=== PATIENT | female | born 1945 | race Caucasian/White ===

== ENCOUNTER 2016-11-23 07:55 | Day surgery (SDC) | payer OTHER ==
[2016-11-22 12:51] VITALS: BMI 30.6
[2016-11-23 10:30] VITALS: TEMP 98
[2016-11-23 10:50] VITALS: BP 140/70
[2016-11-23 12:49] VITALS: PULSE 60
--- NOTE | 2016-11-24 13:43 | PATH ---
Surgical Pathology Report Patient Name: BASSEM ALANIS [facility]. Rec. #: [id number] /Age/Gender: 1945 (Age: 71) / F Account: [id number] Location: [facility]-ENDOSCOPY Taken: 11/23/2016 Received: 11/23/2016 Reported: 11/24/2016 Physicians: Ryan Alvarado M.D. Specimen(s) Received A: BX ANTRAL EROSIONS B: BX ERSION IN BODY C: BX MID ESOPHAGUS Clinical History Followup gastric ulcer, dysphagia, left upper quadrant abdominal pain Erosions in antrum and body Final Diagnosis A. STOMACH, ANTRUM, EROSIONS, BIOPSY: GASTRIC ANTRAL MUCOSA WITH MODERATE CHRONIC GASTRITIS AND REACTIVE GASTROPATHY WITH FOCAL SURFACE EROSION WITH ASSOCIATED ACTIVE INFLAMMATION AND FOVEOLAR HYPERPLASIA. IMMUNOSTAIN FOR H. PYLORI IS NEGATIVE FOR ORGANISMS. B. STOMACH, BODY, EROSION, BIOPSY: GASTRIC OXYNTIC MUCOSA WITH MODERATE CHRONIC GASTRITIS WITH SURFACE EROSION. IMMUNOSTAIN FOR H. PYLORI IS NEGATIVE FOR ORGANISMS. C. ESOPHAGUS, MID, BIOPSY: SQUAMOUS EPITHELIUM WITH CHRONIC INFLAMMATION AND REFLUX TYPE CHANGES. NO EVIDENCE OF EOSINOPHILIC ESOPHAGITIS. Electronically Signed Michele Araujo M.D. Gross Description A. Received in formalin, labeled "biopsy antral erosions" are 2 serra, irregular portions of soft tissue measuring 0.1 and 0.3 cm in greatest dimension. The specimens are submitted in toto in one cassette. B. Received in formalin, labeled "biopsy erosion in body" are 2 serra, irregular portions of soft tissue averaging 0.3 cm in greatest dimension. The specimens are submitted in toto in one cassette. C. Received in formalin, labeled "biopsy midesophagus" are 2 serra, irregular portions of soft tissue measuring 0.2 and 0.3 cm in greatest dimension. The specimens are submitted in toto in one cassette. /11/23/2016 saudi11/23/2016
== END 2016-11-23 11:20 | disposition home or self-care (01) ==
LOC: JASU-ENDO 07:55
PROVIDERS: ATTEND Internal Medicine Gastroenterology
PROC: 0DB68ZX Excision of Stomach, Via Natural or Artificial Opening Endoscopic, Diagnostic (ICD-10-PCS; principal; 2016-11-23 09:30)
DX: K25.9 Gastric ulcer, unspecified as acute or chronic, without hemorrhage or perforation (principal); R13.10 Dysphagia, unspecified
CPT/HCPCS: 88305-TC; 88342-TC

== ENCOUNTER 2019-07-09 12:40 | Inpatient (IN) | payer OTHER ==
--- NOTE | 2019-07-09 13:10 | PDOC ---
History of Present Illness - General Chief Complaint: Shortness of Breath Stated Complaint: SOB Time Seen by Provider: 07/09/19 13:10 - History of Present Illness Initial Comments: 07/09/19 13:10 Ms. Guadarrama is a 74 yo female w/ pmh of HTN, HLD, osteoarthritis who presents for evaluation of worsening shortness of breath over the last 2 weeks with acute worsening over the past 3 days. Patient reports she was previously experiencing chest pain when this started however pain has been controlled with nitro. Patient presents today as she is unable to ambulate at all without becoming SOB. Patient also endorsing 1 day history of diarrhea that consisted of loose stool. 5 episodes yesterday. The patient denies headache and dizziness. Denies fever, chills, nausea, vomit, and constipation. Denies dysuria, frequency, urgency and hematuria. Past History - Past Medical History Allergies/Adverse Reactions: Allergies Allergy/AdvReac Type Severity Reaction Status Date / Time No Known Allergies Allergy Verified 07/09/19 12:58 Home Medications: Ambulatory Orders Acetaminophen [Tylenol Arthritis] 650 mg PO PRN 11/22/16 Alendronate Na [Fosamax (Weekly)] 70 mg PO Q7D 11/22/16 Atorvastatin Ca [Lipitor] 40 mg PO HS 11/22/16 Hydrochlorothiazide 25 mg PO DAILY 11/22/16 Valsartan 160 mg PO BID 11/22/16 Pantoprazole Sodium [Protonix] 40 mg PO DAILY #0 tablet. 11/23/16 Cardiac Disorders: Yes (abnormal ekg. on nitro sl) COPD: No GI Disorders: Yes (reflux) HTN: Yes Hypercholesterolemia: Yes - Surgical History Cardiac Surgery: Yes (cardiac cath 2016) Cholecystectomy: Yes - Psycho Social/Smoking Cessation Hx Smoking History: Unknown if ever smoked Hx Alcohol Use: No Drug/Substance Use Hx: No Substance Use Type: None Review of Systems - Review of Systems Comments:: 07/09/19 13:24 GENERAL/CONSTITUTIONAL: No fever or chills. No weakness. HEAD, EYES, EARS, NOSE AND THROAT: No change in vision. No ear pain or discharge. No sore throat. CARDIOVASCULAR: +Chest pain / SOB as described. RESPIRATORY: No cough, wheezing, or hemoptysis. GASTROINTESTINAL: +Diarrhea as described. No nausea, vomiting, or constipation. GENITOURINARY: No dysuria, frequency, or change in urination. MUSCULOSKELETAL: No joint or muscle swelling or pain. No neck or back pain. SKIN: No rash NEUROLOGIC: No headache, vertigo, loss of consciousness, or change in strength/ sensation. ENDOCRINE: No increased thirst. No abnormal weight change HEMATOLOGIC/LYMPHATIC: No anemia, easy bleeding, or history of blood clots. ALLERGIC/IMMUNOLOGIC: No hives or skin allergy. *Physical Exam - Vital Signs Last Vital Signs Temp Pulse Resp BP Pulse Ox 97.9 F 82 16 111/62 96 07/09/19 12:40 07/09/19 12:40 07/09/19 12:40 07/09/19 12:40 07/09/19 12:40 - Physical Exam 07/09/19 13:25 GENERAL: Awake, alert, and fully oriented, in no acute distress HEAD: No signs of trauma, normocephalic, atraumatic EYES: PERRLA, EOMI, sclera anicteric, conjunctiva clear ENT: Auricles normal inspection, hearing grossly normal, nares patent, oropharynx clear without exudates. Moist mucosa NECK: Normal ROM, supple, no lymphadenopathy, JVD, or masses LUNGS: No distress, speaks full sentences, clear to auscultation bilaterally HEART: Regular rate and rhythm, normal S1 and S2, no murmurs, rubs or gallops, peripheral pulses normal and equal bilaterally. ABDOMEN: +Diffuse abdominal TTP. Normoactive bowel sounds. No guarding, no rebound. No masses EXTREMITIES: Normal inspection, Normal range of motion, no edema. No clubbing or cyanosis. NEUROLOGICAL: Cranial nerves II through XII grossly intact. Normal speech, normal gait, no focal sensorimotor deficits SKIN: Warm, Dry, normal turgor, no rashes or lesions noted. ED Treatment Course - LABORATORY CBC & Chemistry Diagram: 07/09/19 13:35 07/09/19 13:35 Medical Decision Making - Medical Decision Making 07/09/19 14:42 Ms. Guadarrama is a 74 yo female w/ pmh as described who presents for evaluation of symptoms concerning for dissection vs. PE vs. ACS vs. other acute process. EKG notable for diffuse inverted ST waves in II, III, aVF, V1-V6; also prolonged QT. Patient exam significant for diffuse abdominal pain. Patient oxygenation upon repeat evaluation noted to be in low 90% on NC. Patient placed on non- rebreather. 07/09/19 17:00 Patient noted to have PE on CTA. Patient will be admitted for treatment to hospital team. Discharge - Discharge Information Problems reviewed: Yes Clinical Impression/Diagnosis: Pulmonary embolism Qualifiers: Pulmonary embolism type: unspecified Chronicity: unspecified Acute cor pulmonale presence: unspecified Qualified Code(s): I26.99 - Other pulmonary embolism without acute cor pulmonale - Admission Yes - Follow up/Referral Referrals: Madhu Wilhelm MD [Primary Care Provider] - - Patient Discharge Instructions - Post Discharge Activity
--- NOTE | 2019-07-09 13:48 | EKG ---
Test Reason : Blood Pressure : / mmHG Vent. Rate : 078 BPM Atrial Rate : 078 BPM P-R Int : 200 ms QRS Dur : 096 ms QT Int : 466 ms P-R-T Axes : 084 070 -76 degrees QTc Int : 531 ms POOR DATA QUALITY, INTERPRETATION MAY BE ADVERSELY AFFECTED NORMAL SINUS RHYTHM ST T abnormality consider inferior and lateral ischemiai PROLONGED QT ABNORMAL ECG NO PREVIOUS ECGS AVAILABLE Confirmed by Glenn Streeter ([id number]) on 07/09/2019 1:48:02 PM Referred By: Confirmed By:Glenn Streeter
[2019-07-09 14:27] LABS: BASO % 0.5 % (0-2.0); EOS % 1.1 % (0-4.5); HEMATOCRIT 35.6 % (32.4-45.2); HEMOGLOBIN 11.6 GM/dL (10.7-15.3); LYMPH % 9.2 % (8-40); MCH 29.4 pg (25.7-33.7); MCHC 32.6 g/dl (32.0-36.0); MEAN CELL VOLUME 90.1 fl (80-96); MEAN PLT VOLUME 9.5 fl (7.5-11.1); MONO % 6.2 % (3.8-10.2); PLATELET COUNT 249 K/MM3 (134-434); RBC 3.95 M/mm3 (3.60-5.2); WHITE BLOOD COUNT 11.1 K/mm3 (4.0-10.0)
[2019-07-09 14:51] LABS: ALBUMIN 3.6 g/dl (3.4-5.0); BILIRUBIN,TOTAL 0.4 mg/dL (0.2-1); BLOOD UREA NITROGEN 20.3 mg/dL (7-18); CALCIUM 8.7 mg/dL (8.5-10.1); POTASSIUM 3.8 mmol/L (3.5-5.1); TOT PROT 6.8 g/dl (6.4-8.2)
[2019-07-09 15:05] LABS: INR 1.15 (0.83-1.09); PROTHROMBIN TIME (PATIENT) 13.6 SEC (9.7-13.0)
[2019-07-09 15:07] LABS: ACTIVATED PTT 28.2 SECONDS (25.2-36.5)
[2019-07-09] MEDS ORDERED: HEPARIN NA (PORCINE) 5,000 UNITS/ML 1ML VIAL IVPUSH PRN ×2 (16:58)
[2019-07-09] MEDS ORDERED: HEPARIN NA (PORCINE) 5,000 UNITS/ML 1ML VIAL IVPUSH ONE (16:58)
--- NOTE | 2019-07-09 16:59 | PDOC ---
Documentation entered by Sadie Whitaker SCRIBE, acting as scribe for Gilberto Nelson MD. Gilberto Nelson MD: This documentation has been prepared by the [place] Brenda, SCRIBE, under my direction and personally reviewed by me in its entirety. I confirm that the documentation accurately reflects all work, treatment, procedures, and medical decision making performed by me. Attending Attestation - Resident Resident Name: Horace Shah - ED Attending Attestation I have performed the following: I have examined & evaluated the patient, The case was reviewed & discussed with the resident, I agree w/resident's findings & plan, Exceptions are as noted - HPI HPI: 07/09/19 15:46 The patient is a 74 year old female with a significant PMH of HTN, HLD, osteoarthritis who presents to the ED for evalutaion of 2 weeks of progressively worsening SOB that has worsened further in the past 3 days. Patient also reports that upon the SOB he also felt Chest Pain, however the CP has now resolved with nitro. Reports that what prompted his arrival to the ED today was being unabke to ambulate without being SOB. He also endorses 5 episodes of diarhea yesterday. The patient denies headache and dizziness.Denies fever, chills, nausea, vomiting , and constipation. Denies dysuria, frequency, urgency and hematuria. Allergies: NKA - Physicial Exam PE: 07/10/19 17:53 Vitals: Triage Vital signs reviewed General Appearance: No acute distress, well nourished well developed, Head: Atraumatic, Chest Wall: Nontender Cardiac: Slightly tachycardic Lungs: Clear to auscultation bilateral, good air movement bilaterally, Abdomen: Soft, non distended, normal bowel sounds, non tender to palpation Extremities: Full range of motion to all extremities, no cyanosis, clubbing, or edema Skin: Warm and dry, no rashes or lesions, no rash, no petechiae Psych: Normal mood, normal affect 07/10/19 17:53 - Medical Decision Making 07/09/19 17:58 Chest pain back pain with radiation CTA ordered for dissection demonstrated PE patient anticoagulated with heparin patient mid to medicine for further management. Chest pain shortness of breath with radiation to back shoulders and downward radiation given concern for radiation component of chest and back discomfort a CTA was ordered to rule out dissection no dissection noted however positive for PE Troponin of indeterminate value We will heparinize and admit to medicine for further management.
[2019-07-09] MEDS ORDERED: HEPARIN INFUSION - 25,000 UNITS/500 ML INFUS.BAG IVPB ONE (17:20)
[2019-07-09] MEDS ORDERED: HEPARIN NA (PORCINE) 5,000 UNITS/ML 1ML VIAL ONE (17:20)
[2019-07-09] MEDS: HEPARIN INFUSION - 25,000 UNITS/500 ML INFUS.BAG IVPB SCH (17:30)
--- NOTE | 2019-07-09 22:18 | HP ---
Admitting History and Physical - Admission History of Present Illness: Pt is a 74 yo female w/ PMH significant for HTN, HLD, and OA who presents for evaluation of worsening shortness of breath over the last 2 weeks with acute worsening over the past 3 days. Patient reports she was previously experiencing chest pain when this started however pain has been controlled with nitro. Patient presents today as she is unable to ambulate at all without becoming SOB. Patient also endorsing 1 day history of diarrhea that consisted of loose stool. 5 episodes yesterday. Pt travelled from [place] about 3 weeks ago. In the ER pt had cta chest wc showed PE and pt started on IV heparin - Past Medical History Cardiovascular: Yes: HTN, Hyperlipdemia - Smoking History Smoking history: Unknown if ever smoked - Alcohol/Substance Use Hx Alcohol Use: No Home Medications - Allergies Allergies/Adverse Reactions: Allergies Allergy/AdvReac Type Severity Reaction Status Date / Time No Known Allergies Allergy Verified 07/09/19 12:58 - Home Medications Home Medications: Ambulatory Orders Acetaminophen [Tylenol Arthritis] 650 mg PO PRN 11/22/16 Alendronate Na [Fosamax (Weekly)] 70 mg PO Q7D 11/22/16 Atorvastatin Ca [Lipitor] 40 mg PO HS 11/22/16 Amlodipine Besylate 5 mg PO DAILY 07/09/19 Celecoxib 200 mg PO BID 07/09/19 Lisinopril/Hydrochlorothiazide [Lisinopril-Hctz 20-12.5 mg Tab] 1 tab PO DAILY 07/09/19 Ranolazine [Ranolazine ER] 500 mg PO BID 07/09/19 Family Medical History Family History: Unremarkable Review of Systems - Review of Systems Constitutional: reports: Lethargy Eyes: reports: No Symptoms HENT: reports: No Symptoms Neck: reports: No Symptoms Cardiovascular: reports: Chest Pain, Shortness of Breath Respiratory: reports: SOB Gastrointestinal: reports: No Symptoms Genitourinary: reports: No Symptoms Physical Examination Vital Signs: Vital Signs Temperature 97.9 F 07/09/19 12:40 Pulse Rate 72 07/09/19 19:00 Respiratory Rate 07/09/19 19:00 Blood Pressure 119/64 07/09/19 19:00 O2 Sat by Pulse Oximetry (%) 95 07/09/19 19:00 Eyes: Yes: WNL HENT: Yes: WNL Neck: Yes: WNL, Supple Cardiovascular: Yes: WNL, Regular Rate and Rhythm Respiratory: Yes: Diminished Gastrointestinal: Yes: WNL, Normal Bowel Sounds, Soft Musculoskeletal: Yes: WNL Extremities: Yes: WNL Neurological: Yes: WNL, Alert, Oriented ...Motor Strength: WNL Labs: CBC, BMP 07/09/19 13:35 07/09/19 13:35 Problem List - Problems (1) Pulmonary embolism Assessment/Plan: Pt started on IV heparin Will check dopplers of lower extremities due to h/o travel to [place] Heme consult Code(s): I26.99 - OTHER PULMONARY EMBOLISM WITHOUT ACUTE COR PULMONALE Qualifiers: Pulmonary embolism type: unspecified Chronicity: unspecified Acute cor pulmonale presence: unspecified Qualified Code(s): I26.99 - Other pulmonary embolism without acute cor pulmonale (2) HTN (hypertension) Assessment/Plan: Cont norvasc/hctz/lisinopril Code(s): I10 - ESSENTIAL (PRIMARY) HYPERTENSION (3) HLD (hyperlipidemia) Assessment/Plan: Cont lipitor Code(s): E78.5 - HYPERLIPIDEMIA, UNSPECIFIED
[2019-07-09] MEDS ORDERED: ATORVASTATIN CA 40 MG TABLET (FP) ONE (23:28)
[2019-07-10] MEDS: ATORVASTATIN CA 40 MG TABLET (FP) PO SCH ×2 (00:05→21:20)
[2019-07-10] MEDS: RANOLAZINE E.R. 500 MG TABLET (FP) PO SCH ×3 (00:05→21:20)
[2019-07-10 01:01] LABS: INR 1.27 (0.83-1.09)
[2019-07-10 01:04] LABS: ACTIVATED PTT 91.1 SECONDS (25.2-36.5)
[2019-07-10] MEDS: ACETAMINOPHEN 325 MG TABLET (FP) PO PRN (03:31)
[2019-07-10] MEDS: HEPARIN INFUSION - 25,000 UNITS/500 ML INFUS.BAG IVPB SCH ×5 (04:02→17:51)
[2019-07-10 08:02] LABS: EOS % 1.9 % (0-4.5); HEMOGLOBIN 10.9 GM/dL (10.7-15.3); LYMPH % 25.2 % (8-40); MCH 29.7 pg (25.7-33.7); MCHC 33.1 g/dl (32.0-36.0); MEAN CELL VOLUME 89.6 fl (80-96); MEAN PLT VOLUME 9.4 fl (7.5-11.1); MONO % 8.1 % (3.8-10.2); NEUT % 63.8 % (42.8-82.8); PLATELET COUNT 238 K/MM3 (134-434); RBC 3.69 M/mm3 (3.60-5.2); RDW 13.9 % (11.6-15.6); WHITE BLOOD COUNT 7.5 K/mm3 (4.0-10.0)
[2019-07-10 08:40] LABS: ALBUMIN 3.4 g/dl (3.4-5.0); BILIRUBIN,TOTAL 0.5 mg/dL (0.2-1); BLOOD UREA NITROGEN 20.8 mg/dL (7-18); CALCIUM 8.5 mg/dL (8.5-10.1); POTASSIUM 3.7 mmol/L (3.5-5.1); TOT PROT 6.1 g/dl (6.4-8.2)
[2019-07-10] MEDS: amLODIPine BESYLATE 5 MG TABLET (FP) PO SCH (09:27)
[2019-07-10] MEDS: LISINOPRIL 20 MG TABLET (FP) PO SCH (09:27)
[2019-07-10] MEDS: HYDROCHLOROTHIAZIDE 12.5 MG CAPSULE (FP) PO SCH (09:27)
--- NOTE | 2019-07-10 11:17 | CON.PULM ---
Consult Consult Specialty:: PULMONARY Referred by:: Dr Cruz Reason for Consultation:: PE - History of Present Illness Chief Complaint: back pain History of Present Illness: 74yo female with h/o HTN, hyperlipidemia, osteoarthritis who was admitted with worsening back pain x 3 days. Pain associated with shortness of breath, worse with deep inspiration. No recent travel or prolonged sedentary periods. Reports varicose veins, but no leg swelling or trauma. No recent surgeries. She is a nonsmoker, not on any hormonal therapy. No personal or family history of VTE. - History Source History Provided By: Patient, Medical Record Limitations to Obtaining History: No Limitations - Past Medical History Cardio/Vascular: Yes: HTN, Hyperlipdemia ...: No - Alcohol/Substance Use Hx Alcohol Use: No - Smoking History Smoking history: Former smoker Have you smoked in the past 12 months: No Home Medications - Allergies Allergies/Adverse Reactions: Allergies Allergy/AdvReac Type Severity Reaction Status Date / Time No Known Allergies Allergy Verified 07/09/19 12:58 - Home Medications Home Medications: Ambulatory Orders Acetaminophen [Tylenol Arthritis] 650 mg PO PRN 11/22/16 Alendronate Na [Fosamax (Weekly)] 70 mg PO Q7D 11/22/16 Atorvastatin Ca [Lipitor] 40 mg PO HS 11/22/16 Amlodipine Besylate 5 mg PO DAILY 07/09/19 Celecoxib 200 mg PO DAILY 07/09/19 Lisinopril/Hydrochlorothiazide [Lisinopril-Hctz 20-12.5 mg Tab] 1 tab PO DAILY 07/09/19 Ranolazine [Ranolazine ER] 500 mg PO BID 07/09/19 Review of Systems - Review of Systems Constitutional: reports: Weakness. denies: Chills, Fever Eyes: denies: Recent Change in Vision HENT: denies: Nasal Congestion, Throat Pain Neck: denies: Stiffness, Tenderness Cardiovascular: reports: Chest Pain, Shortness of Breath Respiratory: reports: SOB on Exertion. denies: Cough, Wheezing Gastrointestinal: denies: Abdominal Pain, Nausea, Vomiting Genitourinary: denies: Dysuria, Hematuria Neurological: denies: Dizziness, Headache Endocrine: denies: Unexplained Weight Loss Physical Exam Vital Sings: Vital Signs Temperature 98.1 F 07/10/19 07:06 Pulse Rate 69 07/10/19 07:06 Respiratory Rate 20 07/10/19 07:06 Blood Pressure 126/62 07/10/19 07:06 O2 Sat by Pulse Oximetry (%) 91 L 07/10/19 03:00 Constitutional: Yes: No Distress, Calm Eyes: Yes: Conjunctiva Clear, EOM Intact HENT: Yes: Atraumatic, Normocephalic Neck: Yes: Supple, Trachea Midline Cardiovascular: Yes: Regular Rate and Rhythm Respiratory: Yes: Diminished (decreased breath sounds at the bases) ...Clubbing: No Gastrointestinal: Yes: Normal Bowel Sounds, Soft Edema: No Neurological: Yes: Alert, Oriented Labs: CBC, BMP 07/10/19 07:20 07/10/19 07:20 Imaging - Results Chest X-ray: Report Reviewed, Image Reviewed Cat Scan: Report Reviewed, Image Reviewed (bilateral pulmonary emboli) Problem List - Problems (1) Pulmonary embolism Code(s): I26.99 - OTHER PULMONARY EMBOLISM WITHOUT ACUTE COR PULMONALE Qualifiers: Pulmonary embolism type: unspecified Chronicity: unspecified Acute cor pulmonale presence: unspecified Qualified Code(s): I26.99 - Other pulmonary embolism without acute cor pulmonale Assessment/Plan Acute Bilateral Pulmonary Emboli HTN Hyperlipidemia - check echocardiogram for right heart dysfunction - if no evidence of right heart dysfunction, can start oral anticoagulation - O2 to keep Spo2 >90% - will need anticoagulation for at least 6 months Thank you for this consult Rigo Mclean MD
--- NOTE | 2019-07-10 12:51 | CONSULT ---
Consultation: CONSULT SERVICE: Hematology/Oncology Resident HISTORY OF PRESENT ILLNESS: 74yo F with h/o HTN, HLD, OA who presents to the hospital after experiencing severe back pain, chest pain, and SOB. Pt reports that she was in [place] in May and came back on [place] (3hr plane flight). While she was in [place], pt saw a physician due to being in moderate intensity leg pain for which he suggested that she needed a LE doppler and likely had venous insufficiency. Pt returned home and reported she had b/l leg edema, however this was returned to normal relatively quickly. 1 day prior pt became severely SOB with limited activity (walking down one flight of steps). She was running errands when she started to experience severe SOB and felt that she could not sustain even standing. EMS was called and brought her here for evaluation. Pt denies any smoking activity, trauma, exogenous hormone use. She is relatively active and uses compression stockings regularly. Currently, pt feels slight improvement in breathing, however still experiences her ISABEL at this time. She denies any personal or family clotting disorders that she knows of. She denies any bleeding, however notes infrequent small areas of bruising located on extensor surfaces of her arms. MedHx: HTN, HLD, OA Surg Hx: Hysterectomy (age 37; never took exogenous hormones) SoHx: Tobacco - Never Alcohol - Wine occassionally Drugs - None Occupation: Retired REVIEW OF SYSTEMS: As per HPI PHYSICAL EXAMINATION Vital Signs - 24 hr 07/09/19 07/09/19 07/09/19 12:40 13:36 13:54 Temperature 97.9 F Pulse Rate 82 Pulse Rate [ Right Radial] Respiratory 16 Rate Blood Pressure 111/62 Blood Pressure [Right Arm] O2 Sat by Pulse 96 95 95 Oximetry (%) 07/09/19 07/09/19 07/09/19 14:33 19:00 23:00 Temperature 97.9 F Pulse Rate Pulse Rate [ 72 77 Right Radial] Respiratory 20 24 H Rate Blood Pressure Blood Pressure 119/64 106/68 [Right Arm] O2 Sat by Pulse 94 L 95 95 Oximetry (%) 07/10/19 07/10/19 07/10/19 02:00 03:00 07:06 Temperature 98.1 F 98.1 F Pulse Rate 79 69 Pulse Rate [ Right Radial] Respiratory 20 20 Rate Blood Pressure 112/74 126/62 Blood Pressure [Right Arm] O2 Sat by Pulse 91 L Oximetry (%) 07/10/19 09:00 Temperature Pulse Rate Pulse Rate [ Right Radial] Respiratory Rate Blood Pressure Blood Pressure [Right Arm] O2 Sat by Pulse 97 Oximetry (%) GENERAL: Awake, alert, and fully oriented, in no acute distress, laying in bed able to speak in full sentences. HEENT: NC/AT, JAZMINE, sclera anicteric, no conjunctival pallor, no gum abnormalities, MMM. NECK: Soft, no cervical chain lymphadenopathy, no JVD LUNGS: CTA bilaterally. No wheezes, and no crackles. No accessory muscle use. On 4LNC HEART: RRR, normal S1 and S2 without murmur ABDOMEN: Soft, lower abdomen surgical scar noted, nondistended, normoactive BS, nontender, no hepatomegaly or hepatic nodules appreciated, no splenomegaly via palpation. EXTREMITIES: Several b/l digit osteophytic DIP joint without joint edema or tenderness, 2+ pulses in all distal extremities, warm, well-perfused. Minimal calf tenderness in R>L leg, no edema PSYCHIATRIC: Cooperative. Good eye contact. Appropriate mood and affect. SKIN: Warm, no tenting, no rashes appreciated Laboratory Results - last 24 hr 07/09/19 07/09/19 07/09/19 13:35 13:35 13:35 WBC 11.1 H RBC 3.95 Hgb 11.6 Hct 35.6 MCV 90.1 MCH 29.4 MCHC 32.6 RDW 14.0 Plt Count 249 MPV 9.5 Absolute Neuts (auto) 9.3 H Neutrophils % 83.0 H Lymphocytes % 9.2 Monocytes % 6.2 Eosinophils % 1.1 Basophils % 0.5 Nucleated RBC % 0 PT with INR 13.60 H INR 1.15 H PTT (Actin FS) 28.2 Sodium 137 Potassium 3.8 Chloride 104 Carbon Dioxide 27 Anion Gap 6 L BUN 20.3 H Creatinine 1.0 Est GFR (CKD-EPI)AfAm 64.73 Est GFR (CKD-EPI)NonAf 55.85 Random Glucose 105 Calcium 8.7 Total Bilirubin 0.4 AST 97 H ALT 119 H Alkaline Phosphatase 115 Creatine Kinase 120 Troponin I 0.06 H Total Protein 6.8 Albumin 3.6 Blood Type Antibody Screen 07/09/19 07/10/19 07/10/19 13:35 00:00 02:55 WBC RBC Hgb Hct MCV MCH MCHC RDW Plt Count MPV Absolute Neuts (auto) Neutrophils % Lymphocytes % Monocytes % Eosinophils % Basophils % Nucleated RBC % PT with INR 15.00 H INR 1.27 H PTT (Actin FS) 91.1 H 124.9 H Sodium Potassium Chloride Carbon Dioxide Anion Gap BUN Creatinine Est GFR (CKD-EPI)AfAm Est GFR (CKD-EPI)NonAf Random Glucose Calcium Total Bilirubin AST ALT Alkaline Phosphatase Creatine Kinase Troponin I Total Protein Albumin Blood Type O POSITIVE Antibody Screen Negative 07/10/19 07/10/19 07/10/19 07:20 07:20 10:20 WBC 7.5 RBC 3.69 Hgb 10.9 Hct 33.0 MCV 89.6 MCH 29.7 MCHC 33.1 RDW 13.9 Plt Count 238 MPV 9.4 Absolute Neuts (auto) 4.8 Neutrophils % 63.8 D Lymphocytes % 25.2 D Monocytes % 8.1 Eosinophils % 1.9 Basophils % 1.0 Nucleated RBC % 0 PT with INR INR PTT (Actin FS) 106.8 H Sodium 137 Potassium 3.7 Chloride 104 Carbon Dioxide 27 Anion Gap 6 L BUN 20.8 H Creatinine 1.0 Est GFR (CKD-EPI)AfAm 64.73 Est GFR (CKD-EPI)NonAf 55.85 Random Glucose 114 H Calcium 8.5 Total Bilirubin 0.5 AST 55 H ALT 102 H Alkaline Phosphatase 100 Creatine Kinase Troponin I Total Protein 6.1 L Albumin 3.4 Blood Type Antibody Screen Active Medications Generic Name Dose Route Start Last Admin Trade Name Freq PRN Reason Stop Dose Admin Acetaminophen 650 mg 07/10/19 03:20 07/10/19 03:31 Tylenol - PO 650 mg Q6H PRN Administration PAIN LEVEL 3-10 Amlodipine Besylate 5 mg 07/10/19 10:00 07/10/19 09:27 Norvasc - PO 5 mg DAILY ALEXANDRO Administration Atorvastatin Calcium 40 mg 07/09/19 22:00 07/10/19 00:05 Lipitor - PO 40 mg HS ALEXANDRO Administration Heparin Sodium (Porcine) 3,300 unit 07/09/19 16:58 Heparin - 40 unit/kg (3300 unit) IVPUSH PRN PRN For aPTT 35 to 45 seconds Heparin Sodium (Porcine) 6,500 unit 07/09/19 16:58 Heparin - 80 unit/kg (6500 unit) IVPUSH PRN PRN aPTT <35 seconds Hydrochlorothiazide 12.5 mg 07/10/19 10:00 07/10/19 09:27 Hctz - PO 12.5 mg DAILY ALEXANDRO Administration Heparin Sodium/Dextrose 25,000 units in 500 mls @ 29.393 mls/hr 07/09/19 17: 00 07/10/19 05:26 Heparin Infusion - IVPB 15 units/kg/hr TITR ALEXANDRO 24.494 mls/hr Administration Protocol 18 UNITS/KG/HR Lisinopril 20 mg 07/10/19 10:00 07/10/19 09:27 Prinivil PO 20 mg DAILY ALEXANDRO Administration Ranolazine 500 mg 07/09/19 22:00 07/10/19 09:27 Ranexa - PO 500 mg BID ALEXANDRO Administration ECG - S1Q3T3 phenomenon noted; Sinus rhythm without BROOK/STD, normal axis and R- wave progression. Qtc 536ms ASSESSMENT/PLAN: Provoked Bilateral Pulmonary embolism History of HTN History of HLD Prolonged QTc --PESI class II (age only) --Pt without distress on 4LNC --Maintain O2 >90% --Heparin gtt ordered; most recent PTT 106.8; adjust gtt per protocol --Echocardiogram for RV strain ordered --If no strain can switch to oral AC agent and likely will need at minimum 3 months of AC due to provoked etiology --Will need hypercoaguable workup on outpatient basis Case to be discussed with Dr. Mercedes Hernandez, DO - IM PGY-3 Visit type - Emergency Visit Emergency Visit: Yes ED Registration Date: 07/09/19 Care time: The patient presented to the Emergency Department on the above date and was hospitalized for further evaluation of their emergent condition. - New Patient This patient is new to me today: Yes Date on this admission: 07/11/19 - Critical Care Critical Care patient: No ATTENDING PHYSICIAN STATEMENT I saw and evaluated the patient. I reviewed the resident's note and discussed the case with the resident. I agree with the resident's findings and plan as documented. SUBJECTIVE: OBJECTIVE: ASSESSMENT AND PLAN:
--- NOTE | 2019-07-10 15:52 | ECHO ---
Version: 1 Name: BASSEM ALANIS Exam: Adult Echocardiogram Study Date: 07/10/2019, 2:14 PM Age: 74 Years MMode/2D Measurements & Calculations LAV (MOD-bp): 49.0 ml LVOT diam: 2.10 cm Doppler Measurements & Calculations MV E max nima: 71.1 cm/sec Med E/e': 13.7 MV A max nima: 87.9 cm/sec Med Peak E' Nima: 5.2 cm/sec MV E/A: 0.81 Lat E/e': 12.0 Lat Peak E' Nima: 5.9 cm/sec Ao max P.2 mmHg Ao V2 max: 134.2 cm/sec PI end-d nima: 192.7 cm/sec TR max nima: 373.7 cm/sec TR max P.9 mmHg Procedure A two-dimensional transthoracic echocardiogram with color flow and Doppler was performed. Left Ventricle Normal LV size with hyperdynamic LV systolic function. Grade I diastolic dysfunction, (abnormal rela xation pattern). Right Ventricle The right ventricular systolic function is moderately reduced. Normal apical RV function (Heredia' s sign) can be seen in acute pulmonary embolism. Atria The left atrial size is normal. The right atrium is moderately dilated. Mitral Valve There is moderate mitral annular calcification. There is trace mitral regurgitation. Tricuspid Valve There is mild tricuspid regurgitation. Assuming the RA pressure is 20 mmHg. Right ventricular systol ic pressure is elevated at 76 mmhg. There is severe pulmonary hypertension. Aortic Valve The aortic valve is normal in structure and function. Pulmonic Valve The pulmonic valve is normal in structure and function. Great Vessels The aortic root is normal size. Pericardium/Pleura There is no pericardial effusion. Tech Comments tds study ef measurements were not done. Summary Statements Normal LV size with hyperdynamic LV systolic function. The right ventricular systolic function is moderately reduced. Normal apical RV function (Heredia's sign) can be seen in acute pulmonary embolism. There is severe pulmonary hypertension. Rolan Plata 07/10/2019, 3:52 PM Ordering Physician: Chente Hernandez Referring Physician: CHENTE HERNANDEZ Performed By: Ambreen Aguiar
--- NOTE | 2019-07-10 18:00 | PN ---
Teaching Attending Note Name of Resident: Chente Hernandez ATTENDING PHYSICIAN STATEMENT I saw and evaluated the patient. I reviewed the resident's note and discussed the case with the resident. I agree with the resident's findings and plan as documented. SUBJECTIVE: Patient seen and examined 5 years ago, and 3 years ago negative cardiac evaluation at [facility]. In [place] in May and began experiencing SOB and left sciatica type symptoms. Told vascular problem, Flew back to [place] - 3 hour flight . Began experiencing progressive SOB , dyspnea over next several weeks . Came to ER with Bilateral pulmonary emboli, back pains , and with SOB. OBJECTIVE: PMH - hypertension Cervical spine surgery FH-- negative for malignancy ; negative for blood dyscrasia;negative for blood clots ROS- /dyspnea and ISABEL Health maintenance - mammogram- 2019;colonoscopy within 4 years Last Vital Signs Temp Pulse Resp BP Pulse Ox 98.3 F 74 20 129/65 97 07/10/19 15:00 07/10/19 15:00 07/10/19 15:00 07/10/19 15:00 07/10/19 09:00 HEENT: JOSE ARMANDO, EOM Intact Oropharynx: No thrush, No mucositis Neck: Supple Nodes: Without adenopathy Breasts: Without masses Cor: RSR, No murmurs, No gallops Lungs: Clear to P&A Abd: Soft, Normal bowel sounds, No organomegaly Ext:No significant edema Skin: No rashes, Integument intact Current Medications Generic Name Dose Route Start Last Admin Trade Name Freq PRN Reason Stop Dose Admin Acetaminophen 650 mg 07/10/19 03:20 07/10/19 03:31 Tylenol - PO 650 mg Q6H PRN Administration PAIN LEVEL 3-10 Amlodipine Besylate 5 mg 07/10/19 10:00 07/10/19 09:27 Norvasc - PO 5 mg DAILY ALEXANDRO Administration Atorvastatin Calcium 40 mg 07/09/19 22:00 07/10/19 00:05 Lipitor - PO 40 mg HS ALEXANDRO Administration Heparin Sodium (Porcine) 3,300 unit 07/09/19 16:58 Heparin - 40 unit/kg (3300 unit) IVPUSH PRN PRN For aPTT 35 to 45 seconds Heparin Sodium (Porcine) 6,500 unit 07/09/19 16:58 Heparin - 80 unit/kg (6500 unit) IVPUSH PRN PRN aPTT <35 seconds Hydrochlorothiazide 12.5 mg 07/10/19 10:00 07/10/19 09:27 Hctz - PO 12.5 mg DAILY ALEXANDRO Administration Heparin Sodium/Dextrose 25,000 units in 500 mls @ 29.393 mls/hr 07/09/19 17: 00 07/10/19 13:48 Heparin Infusion - IVPB 12 units/kg/hr TITR ALEXANDRO 19.595 mls/hr Administration Protocol 18 UNITS/KG/HR Lisinopril 20 mg 07/10/19 10:00 07/10/19 09:27 Prinivil PO 20 mg DAILY ALEXANDRO Administration Ranolazine 500 mg 07/09/19 22:00 07/10/19 09:27 Ranexa - PO 500 mg BID ALEXANDRO Administration ASSESSMENT AND PLAN: Impression: ?Provoked bilateral pulmonary embolism with sono revealing hyperdynamic LV, pulmonary hypertension dilated RV Bilateral PE involving distal left and right pulmonary arteries, interlobar arteries. Has had CT scans without obvious malignancy and has had colonoscopy and mammography. Agree likely provoked PE and 3 months of a/c would seem appropriate. ? out patient thrombophilia work up.
--- NOTE | 2019-07-10 23:06 | PN ---
Progress Note, Physician - Current Medication List Current Medications: Active Medications Acetaminophen (Tylenol -) 650 mg PO Q6H PRN PRN Reason: PAIN LEVEL 3-10 Last Admin: 07/10/19 03:31 Dose: 650 mg Amlodipine Besylate (Norvasc -) 5 mg PO DAILY [facility] Last Admin: 07/10/19 09:27 Dose: 5 mg Atorvastatin Calcium (Lipitor -) 40 mg PO HS [facility] Last Admin: 07/10/19 21:20 Dose: 40 mg Heparin Sodium (Porcine) (Heparin -) 3,300 unit 40 unit/kg (3300 unit) IVPUSH PRN PRN PRN Reason: For aPTT 35 to 45 seconds Heparin Sodium (Porcine) (Heparin -) 6,500 unit 80 unit/kg (6500 unit) IVPUSH PRN PRN PRN Reason: aPTT <35 seconds Hydrochlorothiazide (Hctz -) 12.5 mg PO DAILY [facility] Last Admin: 07/10/19 09:27 Dose: 12.5 mg Heparin Sodium/Dextrose (Heparin Infusion -) 25,000 units in 500 mls @ 29.393 mls/hr IVPB TITR [facility]; Protocol Last Admin: 07/10/19 17:51 Dose: Not Given Lisinopril (Prinivil) 20 mg PO DAILY [facility] Last Admin: 07/10/19 09:27 Dose: 20 mg Ranolazine (Ranexa -) 500 mg PO BID [facility] Last Admin: 07/10/19 21:20 Dose: 500 mg - Objective Vital Signs: Vital Signs Temperature 97.7 F 07/10/19 19:43 Pulse Rate 68 07/10/19 19:43 Respiratory Rate 18 07/10/19 19:43 Blood Pressure 116/62 07/10/19 19:43 O2 Sat by Pulse Oximetry (%) 97 07/10/19 09:00 Labs: CBC, BMP 07/10/19 07:20 07/10/19 07:20 INR, PTT INR 1.27 (0.83-1.09) H 07/10/19 00:00 Problem List - Problems (1) Pulmonary embolism Code(s): I26.99 - OTHER PULMONARY EMBOLISM WITHOUT ACUTE COR PULMONALE Qualifiers: Pulmonary embolism type: unspecified Chronicity: unspecified Acute cor pulmonale presence: unspecified Qualified Code(s): I26.99 - Other pulmonary embolism without acute cor pulmonale (2) HTN (hypertension) Code(s): I10 - ESSENTIAL (PRIMARY) HYPERTENSION (3) HLD (hyperlipidemia) Code(s): E78.5 - HYPERLIPIDEMIA, UNSPECIFIED
[2019-07-11 08:35] LABS: HEMATOCRIT 34.3 % (32.4-45.2); HEMOGLOBIN 11.5 GM/dL (10.7-15.3); MCH 29.9 pg (25.7-33.7); MCHC 33.4 g/dl (32.0-36.0); MEAN CELL VOLUME 89.7 fl (80-96); MEAN PLT VOLUME 9.2 fl (7.5-11.1); PLATELET COUNT 268 K/MM3 (134-434); RBC 3.83 M/mm3 (3.60-5.2); RDW 13.8 % (11.6-15.6); WHITE BLOOD COUNT 8.1 K/mm3 (4.0-10.0)
--- NOTE | 2019-07-11 10:15 | PN ---
Progress Note (short form) - Note Progress Note: PULMONARY Still some back pain and shortness of breath. Echocardiogram showing Heredia' s sign and severe pulmonary HTN with RV dysfunction. Vital Signs Period Temp Pulse Resp BP Sys/Reese Pulse Ox Last 24 Hr 97.7 F-98.3 F 65-75 18-20 114-138/60-72 97-97 Gen: NAD at rest Heart: RRR Lung: decreased breath sounds at the bases Abd: soft, nontender Ext: no edema CBC, BMP 07/11/19 08:00 07/10/19 07:20 Active Medications Acetaminophen (Tylenol -) 650 mg PO Q6H PRN PRN Reason: PAIN LEVEL 3-10 Last Admin: 07/10/19 03:31 Dose: 650 mg Amlodipine Besylate (Norvasc -) 5 mg PO DAILY [facility] Last Admin: 07/10/19 09:27 Dose: 5 mg Atorvastatin Calcium (Lipitor -) 40 mg PO HS [facility] Last Admin: 07/10/19 21:20 Dose: 40 mg Heparin Sodium (Porcine) (Heparin -) 3,300 unit 40 unit/kg (3300 unit) IVPUSH PRN PRN PRN Reason: For aPTT 35 to 45 seconds Heparin Sodium (Porcine) (Heparin -) 6,500 unit 80 unit/kg (6500 unit) IVPUSH PRN PRN PRN Reason: aPTT <35 seconds Hydrochlorothiazide (Hctz -) 12.5 mg PO DAILY [facility] Last Admin: 07/10/19 09:27 Dose: 12.5 mg Heparin Sodium/Dextrose (Heparin Infusion -) 25,000 units in 500 mls @ 29.393 mls/hr IVPB TITR [facility]; Protocol Last Admin: 07/10/19 17:51 Dose: Not Given Lisinopril (Prinivil) 20 mg PO DAILY [facility] Last Admin: 07/10/19 09:27 Dose: 20 mg Ranolazine (Ranexa -) 500 mg PO BID [facility] Last Admin: 07/10/19 21:20 Dose: 500 mg A/P Submassive Pulmonary Emboli HTN Hyperlipidemia - discussed with radiology, they will do catheter directed thrombolysis/ thrombectomy - continue anticoagulation - O2 to keep Spo2 >90% - ICU monitoring while thrombolytics infusing Problem List - Problems (1) Pulmonary embolism Code(s): I26.99 - OTHER PULMONARY EMBOLISM WITHOUT ACUTE COR PULMONALE Qualifiers: Pulmonary embolism type: unspecified Chronicity: unspecified Acute cor pulmonale presence: unspecified Qualified Code(s): I26.99 - Other pulmonary embolism without acute cor pulmonale
[2019-07-11] MEDS: LISINOPRIL 20 MG TABLET (FP) PO SCH (10:30)
[2019-07-11] MEDS: HYDROCHLOROTHIAZIDE 12.5 MG CAPSULE (FP) PO SCH (10:30)
[2019-07-11] MEDS: amLODIPine BESYLATE 5 MG TABLET (FP) PO SCH (10:30)
[2019-07-11] MEDS: RANOLAZINE E.R. 500 MG TABLET (FP) PO SCH ×2 (10:31→22:32)
[2019-07-11] MEDS ORDERED: ALTEPLASE 50MG 25 MG in SODIUM CHLORIDE 250 ML IVPB SCH ×2 (13:45→14:00)
[2019-07-11] MEDS ORDERED: ALTEPLASE 50MG 25 MG in SODIUM CHLORIDE 225 ML IVPB SCH (14:00)
--- NOTE | 2019-07-11 14:11 | PN ---
Progress Note (short form) - Note Progress Note: HPI: Pt seen after catheter directed TPA placement in ICU. Pt in good hopes without any complaints today. Vital Signs Temperature 98.2 F 07/11/19 10:00 Pulse Rate 65 07/11/19 12:11 Respiratory Rate 21 H 07/11/19 12:11 Blood Pressure 108/58 L 07/11/19 12:11 O2 Sat by Pulse Oximetry (%) 97 07/11/19 11:54 PE: GENERAL: Awake, alert, in no acute distress HEENT: NC/AT, JAZMINE, sclera anicteric, MMM. LUNGS: CTA bilaterally. No wheezes, and no crackles. No accessory muscle use. On 4LNC HEART: RRR, normal S1 and S2 without murmur ABDOMEN: Soft, lower abdomen surgical scar noted, nondistended, normoactive BS, nontender EXTREMITIES: Several b/l digit osteophytic DIP joint, 2+ pulses in all distal extremities, no edema PSYCHIATRIC: Cooperative. Good eye contact. Appropriate mood and affect. CBC, BMP 07/11/19 08:00 07/10/19 07:20 Active Medications Acetaminophen (Tylenol -) 650 mg PO Q6H PRN PRN Reason: PAIN LEVEL 3-10 Last Admin: 07/10/19 03:31 Dose: 650 mg Amlodipine Besylate (Norvasc -) 5 mg PO DAILY [facility] Last Admin: 07/11/19 10:30 Dose: 5 mg Atorvastatin Calcium (Lipitor -) 40 mg PO HS [facility] Last Admin: 07/10/19 21:20 Dose: 40 mg Heparin Sodium (Porcine) (Heparin -) 3,300 unit 40 unit/kg (3300 unit) IVPUSH PRN PRN PRN Reason: For aPTT 35 to 45 seconds Heparin Sodium (Porcine) (Heparin -) 6,500 unit 80 unit/kg (6500 unit) IVPUSH PRN PRN PRN Reason: aPTT <35 seconds Hydrochlorothiazide (Hctz -) 12.5 mg PO DAILY [facility] Last Admin: 07/11/19 10:30 Dose: 12.5 mg Heparin Sodium/Dextrose (Heparin Infusion -) 25,000 units in 500 mls @ 29.393 mls/hr IVPB TITR [facility]; Protocol Last Admin: 07/10/19 17:51 Dose: Not Given Alteplase, Recombinant 25 mg/ (Sodium Chloride) 250 mls @ 5 mls/hr IVPB ASDIR [facility] Stop: 07/12/19 13:59 Alteplase, Recombinant 25 mg/ (Sodium Chloride) 250 mls @ 5 mls/hr IVPB ASDIR [facility] Stop: 07/12/19 13:59 Lisinopril (Prinivil) 20 mg PO DAILY [facility] Last Admin: 07/11/19 10:30 Dose: 20 mg Ranolazine (Ranexa -) 500 mg PO BID [facility] Last Admin: 07/11/19 10:31 Dose: 500 mg Echocardiogram: Normal LV size with hyperdynamic LV systolic function. The right ventricular systolic function is moderately reduced. Normal apical RV function (Heredia's sign) can be seen in acute pulmonary embolism. There is severe pulmonary hypertension. ASSESSMENT/PLAN: Provoked Submassive PE History of HTN History of HLD Prolonged QTc --In lieu of echocardiogram with hyperdynamic LV, catheter-directed thrombolytics initiated --Will need to have AC for likely 6 months with re-evaluation in offices at a later date due to extensive provoked PE --CT scans reviewed: no signs of malignancy, with recent colonoscopy and mammography --Will need thrombophilia workup on outpatient basis Case discussed with Dr. Mercedes Hernandez, DO - IM PGY-3
[2019-07-11] MEDS: HEPARIN INFUSION - 25,000 UNITS/500 ML INFUS.BAG IVPB SCH (16:56)
[2019-07-11] MEDS: ATORVASTATIN CA 40 MG TABLET (FP) PO SCH (22:32)
--- NOTE | 2019-07-11 23:30 | PN ---
Progress Note, Physician - Current Medication List Current Medications: Active Medications Acetaminophen (Tylenol -) 650 mg PO Q6H PRN PRN Reason: PAIN LEVEL 3-10 Last Admin: 07/10/19 03:31 Dose: 650 mg Amlodipine Besylate (Norvasc -) 5 mg PO DAILY [facility] Last Admin: 07/11/19 10:30 Dose: 5 mg Atorvastatin Calcium (Lipitor -) 40 mg PO HS [facility] Last Admin: 07/11/19 22:32 Dose: Not Given Heparin Sodium (Porcine) (Heparin -) 3,300 unit 40 unit/kg (3300 unit) IVPUSH PRN PRN PRN Reason: For aPTT 35 to 45 seconds Heparin Sodium (Porcine) (Heparin -) 6,500 unit 80 unit/kg (6500 unit) IVPUSH PRN PRN PRN Reason: aPTT <35 seconds Hydrochlorothiazide (Hctz -) 12.5 mg PO DAILY [facility] Last Admin: 07/11/19 10:30 Dose: 12.5 mg Heparin Sodium/Dextrose (Heparin Infusion -) 25,000 units in 500 mls @ 29.393 mls/hr IVPB TITR [facility]; Protocol Last Admin: 07/11/19 16:56 Dose: 8.2 units/kg/hr, 13.39 mls/hr Alteplase, Recombinant 25 mg/ (Sodium Chloride) 250 mls @ 5 mls/hr IVPB ASDIR [facility] Stop: 07/12/19 13:59 Last Admin: 07/11/19 16:35 Dose: 5 mls/hr Alteplase, Recombinant 25 mg/ (Sodium Chloride) 250 mls @ 5 mls/hr IVPB ASDIR [facility] Stop: 07/12/19 13:59 Last Admin: 07/11/19 16:35 Dose: 5 mls/hr Lisinopril (Prinivil) 20 mg PO DAILY [facility] Last Admin: 07/11/19 10:30 Dose: 20 mg Ranolazine (Ranexa -) 500 mg PO BID [facility] Last Admin: 07/11/19 22:32 Dose: Not Given - Objective Vital Signs: Vital Signs Temperature 98.2 F 07/11/19 20:30 Pulse Rate 67 07/11/19 20:30 Respiratory Rate 16 07/11/19 22:00 Blood Pressure 131/75 07/11/19 20:30 O2 Sat by Pulse Oximetry (%) 100 07/11/19 22:00 Labs: CBC, BMP 07/11/19 08:00 07/10/19 07:20 INR, PTT INR 1.27 (0.83-1.09) H 07/10/19 00:00 Problem List - Problems (1) Pulmonary embolism Code(s): I26.99 - OTHER PULMONARY EMBOLISM WITHOUT ACUTE COR PULMONALE Qualifiers: Pulmonary embolism type: unspecified Chronicity: unspecified Acute cor pulmonale presence: unspecified Qualified Code(s): I26.99 - Other pulmonary embolism without acute cor pulmonale (2) HTN (hypertension) Code(s): I10 - ESSENTIAL (PRIMARY) HYPERTENSION (3) HLD (hyperlipidemia) Code(s): E78.5 - HYPERLIPIDEMIA, UNSPECIFIED
--- NOTE | 2019-07-12 01:04 | CONSULT ---
Consultation: REQUESTING PROVIDER: Dr. Cruz CONSULT REQUEST: We have been asked to medically evaluate this patient for ICU management HISTORY OF PRESENT ILLNESS: 74F PMH of HTN, HLD, and OA who presented to the hospital after experiencing back pain, chest pressure, and Shortness of breath. Patient was in [place] in may and returned via a 3 hour flight. Patient had severe shortness of breath with limited activity; was running errands the day of admission and experienced severe shortness of breath prompting her to call EMS. She was noted to have a PE on CTA chest and started on IV Heparin. Today patient underwent catheter directed TPA placement. After the procedure patient noted a headache was having from earlier on, but endorsed feeling improvement in her shortness of breath and relief of the chest pressure she was feeling prior to admission. She currently denies any chest pain, shortness of breath, abdominal pain, nausea, vomiting, diarrhea, subjective fevers, and bleeding. REVIEW OF SYSTEMS: CONSTITUTIONAL: Absent: fever, chills, diaphoresis, generalized weakness, malaise, loss of appetite, weight change HEENT: Absent: rhinorrhea, nasal congestion, throat pain, throat swelling, difficulty swallowing, mouth swelling, ear pain, eye pain, visual changes CARDIOVASCULAR: Absent: chest pain, syncope, palpitations, irregular heart rate, lightheadedness, peripheral edema RESPIRATORY: Absent: cough, shortness of breath, dyspnea with exertion, orthopnea, wheezing, stridor, hemoptysis GASTROINTESTINAL: Absent: abdominal pain, abdominal distension, nausea, vomiting, diarrhea, constipation, melena, hematochezia GENITOURINARY: Absent: dysuria, frequency, urgency, hesitancy, hematuria, flank pain, genital pain MUSCULOSKELETAL: Absent: myalgia, arthralgia, joint swelling, back pain, neck pain SKIN: Absent: rash, itching, pallor HEMATOLOGIC/IMMUNOLOGIC: Absent: easy bleeding, easy bruising, lymphadenopathy, frequent infections ENDOCRINE: Absent: unexplained weight gain, unexplained weight loss, heat intolerance, cold intolerance NEUROLOGIC: Present: headache Absent: focal weakness or paresthesias, dizziness, unsteady gait, seizure, mental status changes, bladder or bowel incontinence PSYCHIATRIC: Absent: anxiety, depression, suicidal or homicidal ideation, hallucinations. PHYSICAL EXAMINATION Vital Signs - 24 hr 07/11/19 07/11/19 07/11/19 01:00 06:46 09:00 Temperature 97.8 F 98.1 F Pulse Rate 65 65 Pulse Rate [ Left Lower Arm] Respiratory 18 20 Rate Respiratory Rate [Left Lower Arm] Blood Pressure 125/65 114/60 Blood Pressure [Left Lower Arm ] O2 Sat by Pulse 97 Oximetry (%) O2 Sat by Pulse Oximetry (%) [ Left Lower Arm] 07/11/19 07/11/19 07/11/19 10:00 11:54 12:11 Temperature 98.2 F Pulse Rate 63 65 Pulse Rate [ Left Lower Arm] Respiratory 18 21 H Rate Respiratory Rate [Left Lower Arm] Blood Pressure 109/66 108/58 L Blood Pressure [Left Lower Arm ] O2 Sat by Pulse 97 97 Oximetry (%) O2 Sat by Pulse Oximetry (%) [ Left Lower Arm] 07/11/19 07/11/19 07/11/19 14:56 15:21 15:31 Temperature Pulse Rate 71 Pulse Rate [ 69 72 Left Lower Arm] Respiratory 20 Rate Respiratory 21 H 21 H Rate [Left Lower Arm] Blood Pressure 155/82 Blood Pressure 147/72 144/72 [Left Lower Arm ] O2 Sat by Pulse 98 Oximetry (%) O2 Sat by Pulse 95 89 L Oximetry (%) [ Left Lower Arm] 07/11/19 07/11/19 07/11/19 15:41 15:51 16:01 Temperature Pulse Rate Pulse Rate [ 73 72 72 Left Lower Arm] Respiratory Rate Respiratory 21 H 21 H 21 H Rate [Left Lower Arm] Blood Pressure Blood Pressure 139/74 142/71 142/71 [Left Lower Arm ] O2 Sat by Pulse Oximetry (%) O2 Sat by Pulse 92 L 96 93 L Oximetry (%) [ Left Lower Arm] 07/11/19 07/11/19 07/11/19 16:10 17:16 17:30 Temperature 98.3 F Pulse Rate 71 72 71 Pulse Rate [ Left Lower Arm] Respiratory 21 H 19 20 Rate Respiratory Rate [Left Lower Arm] Blood Pressure 143/75 143/75 130/77 Blood Pressure [Left Lower Arm ] O2 Sat by Pulse 100 Oximetry (%) O2 Sat by Pulse Oximetry (%) [ Left Lower Arm] 07/11/19 07/11/19 07/11/19 17:45 18:00 19:30 Temperature 98.1 F Pulse Rate 70 72 68 Pulse Rate [ Left Lower Arm] Respiratory 18 18 16 Rate Respiratory Rate [Left Lower Arm] Blood Pressure 135/66 144/93 138/72 Blood Pressure [Left Lower Arm ] O2 Sat by Pulse Oximetry (%) O2 Sat by Pulse Oximetry (%) [ Left Lower Arm] 07/11/19 07/11/19 07/11/19 20:00 20:30 21:00 Temperature 98.1 F 98.2 F Pulse Rate 68 67 Pulse Rate [ Left Lower Arm] Respiratory 16 16 Rate Respiratory Rate [Left Lower Arm] Blood Pressure 134/76 131/75 Blood Pressure [Left Lower Arm ] O2 Sat by Pulse 100 Oximetry (%) O2 Sat by Pulse Oximetry (%) [ Left Lower Arm] 07/11/19 22:00 Temperature Pulse Rate 66 Pulse Rate [ Left Lower Arm] Respiratory 19 Rate Respiratory Rate [Left Lower Arm] Blood Pressure 137/75 Blood Pressure [Left Lower Arm ] O2 Sat by Pulse 100 Oximetry (%) O2 Sat by Pulse Oximetry (%) [ Left Lower Arm] GENERAL: Awake, alert, and fully oriented, in no acute distress. HEAD: Normal with no signs of trauma. EYES: Pupils equal, round and reactive to light, extraocular movements intact EARS, NOSE, THROAT: Ears normal, nares patent, oropharynx clear without exudates. Moist mucous membranes. NECK: right sided central line in place. dressing covering catheter. LUNGS: Breath sounds equal, clear to auscultation bilaterally. HEART: Regular rate and rhythm, normal S1 and S2 without murmur, rub or gallop. ABDOMEN: Soft, nontender, not distended, normoactive bowel sounds. MUSCULOSKELETAL: Normal range of motion at all joints. No bony deformities or tenderness. No CVA tenderness. EXTREMITIES: 2+ pulses, warm, well-perfused. No calf tenderness. +1 peripheral edema PSYCHIATRIC: Cooperative. Good eye contact. Appropriate mood and affect. SKIN: Warm, dry, normal turgor, no rashes or lesions noted. Laboratory Results - last 24 hr 07/11/19 07/11/19 01:35 08:00 WBC 8.1 RBC 3.83 Hgb 11.5 Hct 34.3 MCV 89.7 MCH 29.9 MCHC 33.4 RDW 13.8 Plt Count 268 MPV 9.2 PTT (Actin FS) 59.7 H Active Medications Generic Name Dose Route Start Last Admin Trade Name Freq PRN Reason Stop Dose Admin Acetaminophen 650 mg 07/10/19 03:20 07/10/19 03:31 Tylenol - PO 650 mg Q6H PRN Administration PAIN LEVEL 3-10 Amlodipine Besylate 5 mg 07/10/19 10:00 07/11/19 10:30 Norvasc - PO 5 mg DAILY ALEXANDRO Administration Atorvastatin Calcium 40 mg 07/09/19 22:00 07/11/19 22:32 Lipitor - PO Not Given HS ALEXANDRO Heparin Sodium (Porcine) 3,300 unit 07/09/19 16:58 Heparin - 40 unit/kg (3300 unit) IVPUSH PRN PRN For aPTT 35 to 45 seconds Heparin Sodium (Porcine) 6,500 unit 07/09/19 16:58 Heparin - 80 unit/kg (6500 unit) IVPUSH PRN PRN aPTT <35 seconds Hydrochlorothiazide 12.5 mg 07/10/19 10:00 07/11/19 10:30 Hctz - PO 12.5 mg DAILY ALEXANDRO Administration Heparin Sodium/Dextrose 25,000 units in 500 mls @ 29.393 mls/hr 07/09/19 17:00 07/11/19 16:56 Heparin Infusion - IVPB 8.2 units/kg/hr TITR ALEXANDRO 13.39 mls/hr Administration Protocol 18 UNITS/KG/HR Alteplase, Recombinant 25 mg/ 250 mls @ 5 mls/hr 07/11/19 14:00 07/11/19 16:35 Sodium Chloride IVPB 07/12/19 13:59 5 mls/hr ASDIR ALEXANDRO Administration Alteplase, Recombinant 25 mg/ 250 mls @ 5 mls/hr 07/11/19 14:00 07/11/19 16:35 Sodium Chloride IVPB 07/12/19 13:59 5 mls/hr ASDIR ALEXANDRO Administration Lisinopril 20 mg 07/10/19 10:00 07/11/19 10:30 Prinivil PO 20 mg DAILY ALEXANDRO Administration Ranolazine 500 mg 07/09/19 22:00 07/11/19 22:32 Ranexa - PO Not Given BID [facility] ASSESSMENT/PLAN: 74F PMH of HTN, HLD, and OA who presents with submassive PE. She is s/p TPA and thrombectomy. Neuro: -AAOx3 -Head CT shows no acute processes. -Headache managed with tylenol PRN. Not new onset, IR team was aware of headache prior to start of procedure. -Continue to monitor. If new headache will get Head CT Cardiovascular -Hx of HTN and HLD -Continue home medications -Continue cardiac monitoring -Echo shows normal LV size with hyperdynamic LV systolic function, right ventricular systolic function moderately reduced, severe pulmonary HTN. -Underwent thrombolysis and thrombectomy for submassive PE Pulmonary -Patient was initially SOB -Currently breathing comfortably -On 3L NC, will titrate down as tolerated GI -No acute issues, will continue to monitor Renal -No acute issues, will continue to monitor ID -WNL WBC, no episodes of fever -Will continue to monitor Heme/Onc -Submassive PE s/p thrombectomy and thrombolysis -Will require thrombophilia workup as outpatient -Anticoagulation for 6 months with re-evaluation as outpatient -TPA and hepearin F: No IVF E: Monitor CMP after TPA infusion has completed N: NPO DVT: TPA and Heparin Dispo: We will continue to follow the patient. Thank you for this consultative opportunity. Visit type - Emergency Visit Emergency Visit: Yes ED Registration Date: 07/09/19 Care time: The patient presented to the Emergency Department on the above date and was hospitalized for further evaluation of their emergent condition. - New Patient This patient is new to me today: No - Critical Care Critical Care patient: Yes Total Critical Care Time (in minutes): 45 Critical Care Statement: The care of this patient involved high complexity decision making to prevent further life threatening deterioration of the patient's condition and/or to evaluate & treat vital organ system(s) failure or risk of failure. ATTENDING PHYSICIAN STATEMENT I saw and evaluated the patient. I reviewed the resident's note and discussed the case with the resident. I agree with the resident's findings and plan as documented. SUBJECTIVE: OBJECTIVE: ASSESSMENT AND PLAN:
[2019-07-12] MEDS: ACETAMINOPHEN 325 MG TABLET (FP) PO PRN (01:25)
[2019-07-12] MEDS: HYDROCHLOROTHIAZIDE 12.5 MG CAPSULE (FP) PO SCH (11:09)
[2019-07-12] MEDS: RANOLAZINE E.R. 500 MG TABLET (FP) PO SCH ×2 (11:09→21:03)
[2019-07-12] MEDS: amLODIPine BESYLATE 5 MG TABLET (FP) PO SCH (11:09)
[2019-07-12] MEDS: LISINOPRIL 20 MG TABLET (FP) PO SCH (11:09)
--- NOTE | 2019-07-12 12:38 | PN ---
Teaching Attending Note Name of Resident: Uma Stephen ATTENDING PHYSICIAN STATEMENT I saw and evaluated the patient. I reviewed the resident's note and discussed the case with the resident. I agree with the resident's findings and plan as documented. SUBJECTIVE: Patient seen and examined in the ICU. Awake and alert. tPA infusing. No CP or SOB. Intake & Output 07/09/19 07/10/19 07/11/19 07/12/19 23:59 23:59 23:59 23:59 Intake Total 549 825.7 156.1 Balance 549 825.7 156.1 Weight 180 lb 188 lb 189 lb 3.2 oz Last Vital Signs Temp Pulse Resp BP Pulse Ox 97.8 F 60 17 140/76 100 07/12/19 10:00 07/12/19 10:00 07/12/19 10:00 07/12/19 10:00 07/12/19 10:00 Active Medications Acetaminophen (Tylenol -) 650 mg PO Q6H PRN PRN Reason: PAIN LEVEL 3-10 Last Admin: 07/12/19 01:25 Dose: 650 mg Amlodipine Besylate (Norvasc -) 5 mg PO DAILY [facility] Last Admin: 07/12/19 11:09 Dose: 5 mg Atorvastatin Calcium (Lipitor -) 40 mg PO HS [facility] Last Admin: 07/11/19 22:32 Dose: Not Given Heparin Sodium (Porcine) (Heparin -) 3,300 unit 40 unit/kg (3300 unit) IVPUSH PRN PRN PRN Reason: For aPTT 35 to 45 seconds Heparin Sodium (Porcine) (Heparin -) 6,500 unit 80 unit/kg (6500 unit) IVPUSH PRN PRN PRN Reason: aPTT <35 seconds Hydrochlorothiazide (Hctz -) 12.5 mg PO DAILY [facility] Last Admin: 07/12/19 11:09 Dose: 12.5 mg Heparin Sodium/Dextrose (Heparin Infusion -) 25,000 units in 500 mls @ 29.393 mls/hr IVPB TITR [facility]; Protocol Last Admin: 07/11/19 16:56 Dose: 8.2 units/kg/hr, 13.39 mls/hr Alteplase, Recombinant 25 mg/ (Sodium Chloride) 250 mls @ 5 mls/hr IVPB ASDIR [facility] Stop: 07/12/19 13:59 Last Admin: 07/11/19 16:35 Dose: 5 mls/hr Alteplase, Recombinant 25 mg/ (Sodium Chloride) 250 mls @ 5 mls/hr IVPB ASDIR [facility] Stop: 07/12/19 13:59 Last Admin: 07/11/19 16:35 Dose: 5 mls/hr Lisinopril (Prinivil) 20 mg PO DAILY [facility] Last Admin: 07/12/19 11:09 Dose: 20 mg Ranolazine (Ranexa -) 500 mg PO BID [facility] Last Admin: 07/12/19 11:09 Dose: 500 mg Gen: NAD at rest Heart: RRR Lung: decreased breath sounds at the bases Abd: soft, nontender Ext: no edema Problem List - Problems (1) Pulmonary embolism Code(s): I26.99 - OTHER PULMONARY EMBOLISM WITHOUT ACUTE COR PULMONALE Qualifiers: Pulmonary embolism type: unspecified Chronicity: unspecified Acute cor pulmonale presence: unspecified Qualified Code(s): I26.99 - Other pulmonary embolism without acute cor pulmonale A/P Submassive Pulmonary Emboli HTN Hyperlipidemia - discussed with radiology, they will do catheter directed thrombolysis/ thrombectomy - continue anticoagulation - O2 to keep Spo2 >90% - ICU monitoring while thrombolytics infusing Dr Mitchell
--- NOTE | 2019-07-12 20:40 | PN ---
Physical Exam: SUBJECTIVE: Patient seen and examined. No acute events overnight. S/p 2nd thrombectomy & thrombolysis today w/ IR. OBJECTIVE: Vital Signs Period Temp Pulse Resp BP Sys/Reese Pulse Ox Last 24 Hr 97.8 F-98.3 F 57-66 12-19 113-142/55-85 96-100 GENERAL: AOx3 NAD HEENT: R IJ cath c/d/i. MMM. Sclera clear. PERRLA LUNGS: Breath sounds equal, clear to auscultation bilaterally. HEART: Regular rate and rhythm, normal S1 and S2 without murmur, rub or gallop. ABDOMEN: Soft, nontender, not distended, normoactive bowel sounds. EXTREMITIES: 2+ pulses, warm, well-perfused. No calf tenderness. No LE edema. SKIN: Warm, dry, normal turgor, small amount clotted blood @ periph IV sites Laboratory Last Values WBC 8.1 K/mm3 (4.0-10.0) 07/11/19 08:00 RBC 3.83 M/mm3 (3.60-5.2) 07/11/19 08:00 Hgb 11.5 GM/dL (10.7-15.3) 07/11/19 08:00 Hct 34.3 % (32.4-45.2) 07/11/19 08:00 MCV 89.7 fl (80-96) 07/11/19 08:00 MCH 29.9 pg (25.7-33.7) 07/11/19 08:00 MCHC 33.4 g/dl (32.0-36.0) 07/11/19 08:00 RDW 13.8 % (11.6-15.6) 07/11/19 08:00 Plt Count 268 K/MM3 (134-434) 07/11/19 08:00 MPV 9.2 fl (7.5-11.1) 07/11/19 08:00 Absolute Neuts (auto) 4.8 K/mm3 (1.5-8.0) 07/10/19 07:20 Neutrophils % 63.8 % (42.8-82.8) D 07/10/19 07:20 Lymphocytes % 25.2 % (8-40) D 07/10/19 07:20 Monocytes % 8.1 % (3.8-10.2) 07/10/19 07:20 Eosinophils % 1.9 % (0-4.5) 07/10/19 07:20 Basophils % 1.0 % (0-2.0) 07/10/19 07:20 Nucleated RBC % 0 % (0-0) 07/10/19 07:20 PT with INR 15.00 SEC (9.7-13.0) H 07/10/19 00:00 INR 1.27 (0.83-1.09) H 07/10/19 00:00 PTT (Actin FS) 59.7 SECONDS (25.2-36.5) H 07/11/19 01:35 Sodium 137 mmol/L (136-145) 07/10/19 07:20 Potassium 3.7 mmol/L (3.5-5.1) 07/10/19 07:20 Chloride 104 mmol/L (98-107) 07/10/19 07:20 Carbon Dioxide 27 mmol/L (21-32) 07/10/19 07:20 Anion Gap 6 MMOL/L (8-16) L 07/10/19 07:20 BUN 20.8 mg/dL (7-18) H 07/10/19 07:20 Creatinine 1.0 mg/dL (0.55-1.3) 07/10/19 07:20 Est GFR (CKD-EPI)AfAm 64.73 07/10/19 07:20 Est GFR (CKD-EPI)NonAf 55.85 07/10/19 07:20 Random Glucose 114 mg/dL (74-106) H 07/10/19 07:20 Calcium 8.5 mg/dL (8.5-10.1) 07/10/19 07:20 Total Bilirubin 0.5 mg/dL (0.2-1) 07/10/19 07:20 AST 55 U/L (15-37) H 07/10/19 07:20 ALT 102 U/L (13-61) H 07/10/19 07:20 Alkaline Phosphatase 100 U/L (45-117) 07/10/19 07:20 Creatine Kinase 120 U/L (26-192) 07/09/19 13:35 Troponin I 0.06 ng/ml (0.00-0.05) H 01/27/20 13:35 Total Protein 6.1 g/dl (6.4-8.2) L 07/10/19 07:20 Albumin 3.4 g/dl (3.4-5.0) 07/10/19 07:20 Blood Type O POSITIVE 07/09/19 13:35 Antibody Screen Negative 07/09/19 13:35 Active Medications Current Medications Acetaminophen (Tylenol -) 650 mg PO Q6H PRN PRN Reason: PAIN LEVEL 3-10 Last Admin: 07/12/19 01:25 Dose: 650 mg Amlodipine Besylate (Norvasc -) 5 mg PO DAILY [facility] Last Admin: 07/12/19 11:09 Dose: 5 mg Atorvastatin Calcium (Lipitor -) 40 mg PO HS [facility] Last Admin: 07/12/19 21:03 Dose: 40 mg Heparin Sodium (Porcine) (Heparin -) 3,300 unit 40 unit/kg (3300 unit) IVPUSH PRN PRN PRN Reason: For aPTT 35 to 45 seconds Heparin Sodium (Porcine) (Heparin -) 6,500 unit 80 unit/kg (6500 unit) IVPUSH PRN PRN PRN Reason: aPTT <35 seconds Hydrochlorothiazide (Hctz -) 12.5 mg PO DAILY [facility] Last Admin: 07/12/19 11:09 Dose: 12.5 mg Heparin Sodium/Dextrose (Heparin Infusion -) 25,000 units in 500 mls @ 29.393 mls/hr IVPB TITR [facility]; Protocol Last Titration: 07/12/19 20:47 Dose: 8.2 units/kg/hr, 13.39 mls/hr Lisinopril (Prinivil) 20 mg PO DAILY [facility] Last Admin: 07/12/19 11:09 Dose: 20 mg Ranolazine (Ranexa -) 500 mg PO BID [facility] Last Admin: 07/12/19 21:03 Dose: 500 mg ASSESSMENT/PLAN: 74 y.o. M PMH HTN, HLD, OA dound to have b/l submassive pulmonary emboli #Neuro -AOx3 continue to monitor -C/o mild headache unchanged from prior to procedure -CT head shows no acute process -As per IR instructions, if headache worsens or new onset ACEVEDO occurs, stat CT head #CV -hx HTN: on lisinopril 20mg po, norvasc 5mg po, hctz 12.5 mg PO -echo shows normal LV size with hyperdynamic LV systolic function, right ventricular systolic function moderately reduced, severe pulmonary HTN. #Pulm -Found to have b/l submassive PE on CTA chest -s/p thrombectomy & tpa thrombolysis 07/11 and today -Saturating well continue to monitor sao2 -will need min 3 mo. anticoagulation for likely provoked PE -strict bedrest for 24hrs as per IR recs #ID -afebrile, no leukocytosis -no acute issues #Heme/onc -Will require thrombophilia workup as outpatient -Anticoagulation for min 3 months with re-evaluation as outpatient #FENLTD: -No IVF -trend lytes replete prn -tolerating po diet -R IJ in place #PPX DVT: s/p tpa, heparin drip Visit type - Emergency Visit Emergency Visit: No - New Patient This patient is new to me today: Yes Date on this admission: 07/12/19 - Critical Care Critical Care patient: Yes Total Critical Care Time (in minutes): 45 Critical Care Statement: The care of this patient involved high complexity decision making to prevent further life threatening deterioration of the patient 's condition and/or to evaluate & treat vital organ system(s) failure or risk of failure. ATTENDING PHYSICIAN STATEMENT I saw and evaluated the patient. I reviewed the resident's note and discussed the case with the resident. I agree with the resident's findings and plan as documented. SUBJECTIVE: OBJECTIVE: ASSESSMENT AND PLAN:
[2019-07-12] MEDS: ATORVASTATIN CA 40 MG TABLET (FP) PO SCH (21:03)
--- NOTE | 2019-07-12 22:34 | PN ---
Progress Note, Physician - Current Medication List Current Medications: Active Medications Acetaminophen (Tylenol -) 650 mg PO Q6H PRN PRN Reason: PAIN LEVEL 3-10 Last Admin: 07/12/19 01:25 Dose: 650 mg Amlodipine Besylate (Norvasc -) 5 mg PO DAILY [facility] Last Admin: 07/12/19 11:09 Dose: 5 mg Atorvastatin Calcium (Lipitor -) 40 mg PO HS [facility] Last Admin: 07/12/19 21:03 Dose: 40 mg Heparin Sodium (Porcine) (Heparin -) 3,300 unit 40 unit/kg (3300 unit) IVPUSH PRN PRN PRN Reason: For aPTT 35 to 45 seconds Heparin Sodium (Porcine) (Heparin -) 6,500 unit 80 unit/kg (6500 unit) IVPUSH PRN PRN PRN Reason: aPTT <35 seconds Hydrochlorothiazide (Hctz -) 12.5 mg PO DAILY [facility] Last Admin: 07/12/19 11:09 Dose: 12.5 mg Heparin Sodium/Dextrose (Heparin Infusion -) 25,000 units in 500 mls @ 29.393 mls/hr IVPB TITR [facility]; Protocol Last Titration: 07/12/19 20:47 Dose: 8.2 units/kg/hr, 13.39 mls/hr Lisinopril (Prinivil) 20 mg PO DAILY [facility] Last Admin: 07/12/19 11:09 Dose: 20 mg Ranolazine (Ranexa -) 500 mg PO BID [facility] Last Admin: 07/12/19 21:03 Dose: 500 mg - Objective Vital Signs: Vital Signs Temperature 98.0 F 07/12/19 14:00 Pulse Rate 56 L 07/12/19 22:00 Respiratory Rate 17 07/12/19 22:00 Blood Pressure 123/62 07/12/19 22:00 O2 Sat by Pulse Oximetry (%) 95 07/12/19 22:00 Labs: CBC, BMP 07/11/19 08:00 07/10/19 07:20 INR, PTT INR 1.27 (0.83-1.09) H 07/10/19 00:00 Problem List - Problems (1) Pulmonary embolism Code(s): I26.99 - OTHER PULMONARY EMBOLISM WITHOUT ACUTE COR PULMONALE Qualifiers: Pulmonary embolism type: unspecified Chronicity: unspecified Acute cor pulmonale presence: unspecified Qualified Code(s): I26.99 - Other pulmonary embolism without acute cor pulmonale (2) HTN (hypertension) Code(s): I10 - ESSENTIAL (PRIMARY) HYPERTENSION (3) HLD (hyperlipidemia) Code(s): E78.5 - HYPERLIPIDEMIA, UNSPECIFIED (4) Respiratory failure Assessment/Plan: Resolved Code(s): J96.90 - RESPIRATORY FAILURE, UNSP, UNSP W HYPOXIA OR HYPERCAPNIA
[2019-07-13] MEDS: ACETAMINOPHEN 325 MG TABLET (FP) PO PRN (04:03)
[2019-07-13 06:52] LABS: BASO % 0.8 % (0-2.0); HEMATOCRIT 30.9 % (32.4-45.2); HEMOGLOBIN 10.5 GM/dL (10.7-15.3); MCH 30.2 pg (25.7-33.7); MCHC 33.8 g/dl (32.0-36.0); MEAN CELL VOLUME 89.3 fl (80-96); MEAN PLT VOLUME 9.3 fl (7.5-11.1); MONO % 15.6 % (3.8-10.2); NEUT % 60.6 % (42.8-82.8); PLATELET COUNT 199 K/MM3 (134-434); RBC 3.46 M/mm3 (3.60-5.2); RDW 13.6 % (11.6-15.6); WHITE BLOOD COUNT 5.3 K/mm3 (4.0-10.0)
[2019-07-13 07:39] LABS: ALBUMIN 3.3 g/dl (3.4-5.0); BILIRUBIN,TOTAL 0.6 mg/dL (0.2-1); BLOOD UREA NITROGEN 15.5 mg/dL (7-18); CALCIUM 8.6 mg/dL (8.5-10.1); CREATININE 0.9 mg/dL (0.55-1.3); MAGNESIUM 1.8 mg/dL (1.8-2.4); PHOSPHOROUS 4.2 mg/dL (2.5-4.9); POTASSIUM 3.7 mmol/L (3.5-5.1); TOT PROT 6.2 g/dl (6.4-8.2)
--- NOTE | 2019-07-13 07:44 | PN ---
Physical Exam: SUBJECTIVE: Patient seen and examined MAEGAN. States that she had mild headache overnight which resolved with acetaminophen. Denies nausea, dizziness, worsening headache, visual changes. OBJECTIVE: Vital Signs Period Temp Pulse Resp BP Sys/Reese Pulse Ox Last 24 Hr 97.8 F-98.0 F 53-89 13-22 113-147/55-89 95-100 GENERAL: The patient is awake, alert, and fully oriented, in no acute distress. HEAD: Normal with no signs of trauma. EYES: PERRL, extraocular movements intact, sclera anicteric, conjunctiva clear. No ptosis. ENT: Ears normal, nares patent, oropharynx clear without exudates NECK: Trachea midline, full range of motion, supple. LUNGS: Breath sounds equal, clear to auscultation bilaterally, no wheezes, no crackles, no accessory muscle use. HEART: Regular rate and rhythm, S1, S2 without murmur, rub or gallop. ABDOMEN: Soft, nontender, nondistended, normoactive bowel sounds EXTREMITIES: 2+ pulses, warm, well-perfused, no edema. NEUROLOGICAL: Cranial nerves II through XII grossly intact PSYCH: Normal mood, normal affect SKIN: Warm, dry Laboratory Results - last 24 hr 07/13/19 06:15 PTT (Actin FS) 41.7 H Active Medications Generic Name Dose Route Start Last Admin Trade Name Freq PRN Reason Stop Dose Admin Acetaminophen 650 mg 07/10/19 03:20 07/13/19 04:03 Tylenol - PO 650 mg Q6H PRN Administration PAIN LEVEL 3-10 Amlodipine Besylate 5 mg 07/10/19 10:00 07/12/19 11:09 Norvasc - PO 5 mg DAILY [facility] Administration Atorvastatin Calcium 40 mg 07/09/19 22:00 07/12/19 21:03 Lipitor - PO 40 mg HS [facility] Administration Heparin Sodium (Porcine) 3,300 unit 07/09/19 16:58 Heparin - 40 unit/kg (3300 unit) IVPUSH PRN PRN For aPTT 35 to 45 seconds Heparin Sodium (Porcine) 6,500 unit 07/09/19 16:58 Heparin - 80 unit/kg (6500 unit) IVPUSH PRN PRN aPTT <35 seconds Hydrochlorothiazide 12.5 mg 07/10/19 10:00 07/12/19 11:09 Hctz - PO 12.5 mg DAILY [facility] Administration Heparin Sodium/Dextrose 25,000 units in 500 mls @ 29.393 mls/hr 07/09/19 17: 00 07/12/19 20:47 Heparin Infusion - IVPB 8.2 units/kg/hr TITR [facility] 13.39 mls/hr Titration Protocol 18 UNITS/KG/HR Lisinopril 20 mg 07/10/19 10:00 07/12/19 11:09 Prinivil PO 20 mg DAILY [facility] Administration Ranolazine 500 mg 07/09/19 22:00 07/12/19 21:03 Ranexa - PO 500 mg BID [facility] Administration ASSESSMENT/PLAN: 74 yo F PMH HTN, HLD, OA found to have b/l sub-massive pulmonary emboli. Neuro: - AAOx3 - mild headache, unchanged from prior to procedure and resolved with acetaminophen - CT head without acute process - per IR: if headache worsens or new onset ACEVEDO occurs, stat CT head and call IR CV: - hx HTN - home meds: lisinopril 20mg, amlodipine 5mg, HCTZ 12.5 mg - echo: normal LV size with hyperdynamic LV systolic function, moderately reduced right ventricular systolic function, severe pulmonary HTN - no acute concerns Respiratory: - b/l sub-massive PE on CTA chest - s/p thrombectomy & tpa thrombolysis 07/11 - repeat procedure to remove sheath 07/12 - saturating well - planned for minimum of 3 months anticoagulation for likely provoked PE - strict bedrest for 24hrs as per IR recs ID: - afebrile - no leukocytosis - no acute issues Heme/Onc: - outpatient thrombophilia workup - anticoagulation for minimum of 3 months with re-evaluation as outpatient - continuing heparin drip - PTT 41.7 this morning - will give PRN heparin push FENLTD: - No IVF - trend lytes, replete prn - tolerating PO diet - RIJ placed 07/11, removed 07/12 PPX: - heparin drip Dispo: - transfer patient to med/surg Visit type - Emergency Visit Emergency Visit: Yes ED Registration Date: 07/09/19 Care time: The patient presented to the Emergency Department on the above date and was hospitalized for further evaluation of their emergent condition. - New Patient This patient is new to me today: Yes Date on this admission: 07/13/19 - Critical Care Critical Care patient: Yes Total Critical Care Time (in minutes): 30 Critical Care Statement: The care of this patient involved high complexity decision making to prevent further life threatening deterioration of the patient 's condition and/or to evaluate & treat vital organ system(s) failure or risk of failure. ATTENDING PHYSICIAN STATEMENT I saw and evaluated the patient. I reviewed the resident's note and discussed the case with the resident. I agree with the resident's findings and plan as documented. SUBJECTIVE: OBJECTIVE: ASSESSMENT AND PLAN:
[2019-07-13] MEDS ORDERED: HEPARIN INFUSION - 25,000 UNITS/500 ML INFUS.BAG IVPB SCH (08:32)
[2019-07-13] MEDS ORDERED: HEPARIN NA (PORCINE) 5,000 UNITS/ML 1ML VIAL IVPUSH PRN (08:33)
[2019-07-13] MEDS: HEPARIN - 25,000 UNIT in SODIUM CHLORIDE 495 ML IV SCH (08:48)
[2019-07-13] MEDS: RANOLAZINE E.R. 500 MG TABLET (FP) PO SCH ×2 (09:44→21:10)
[2019-07-13] MEDS: amLODIPine BESYLATE 5 MG TABLET (FP) PO SCH (09:44)
[2019-07-13] MEDS: LISINOPRIL 20 MG TABLET (FP) PO SCH (09:44)
[2019-07-13] MEDS: HYDROCHLOROTHIAZIDE 12.5 MG CAPSULE (FP) PO SCH (09:44)
--- NOTE | 2019-07-13 10:29 | PN ---
Progress Note (short form) - Note Progress Note: Patient seen and examined Denies significant chest pains or SOB b/l sub-massive PE on CTA chest - s/p thrombectomy & tpa thrombolysis 07/11 -s/p sheath removal 07/12 Last Vital Signs Temp Pulse Resp BP Pulse Ox 98.0 F 89 22 H 147/89 95 07/12/19 14:00 07/13/19 06:00 07/13/19 06:00 07/13/19 06:00 07/12/19 22:00 HEENT: JOSE ARMANDO, EOM Intact Oropharynx: No thrush, No mucositis Cor: RSR, No murmurs, No gallops Lungs: few rales Abd: Soft, Normal bowel sounds, No organomegaly Ext:No significant edema Skin: No rashes, Integument intact CBC, BMP 07/13/19 06:15 07/13/19 06:15 Current Medications Generic Name Dose Route Start Last Admin Trade Name Freq PRN Reason Stop Dose Admin Acetaminophen 650 mg 07/10/19 03:20 07/13/19 04:03 Tylenol - PO 650 mg Q6H PRN Administration PAIN LEVEL 3-10 Amlodipine Besylate 5 mg 07/10/19 10:00 07/13/19 09:44 Norvasc - PO 5 mg DAILY [facility] Administration Atorvastatin Calcium 40 mg 07/09/19 22:00 07/12/19 21:03 Lipitor - PO 40 mg HS [facility] Administration Heparin Sodium (Porcine) 3,300 unit 07/09/19 16:58 Heparin - 40 unit/kg (3300 unit) IVPUSH PRN PRN For aPTT 35 to 45 seconds Heparin Sodium (Porcine) 6,500 unit 07/09/19 16:58 Heparin - 80 unit/kg (6500 unit) IVPUSH PRN PRN aPTT <35 seconds Heparin Sodium (Porcine) 1,000 unit 07/13/19 08:33 Heparin - IVPUSH PRN PRN Heparin Heparin Sodium (Porcine) 5,000 unit 07/13/19 08:33 Heparin - IVPUSH PRN PRN Heparin Hydrochlorothiazide 12.5 mg 07/10/19 10:00 07/13/19 09:44 Hctz - PO 12.5 mg DAILY [facility] Administration Heparin Sodium/Dextrose 25,000 units in 500 mls @ 29.393 mls/hr 07/13/19 08: 32 Heparin Infusion - IVPB TITR [facility] Protocol 18 UNITS/KG/HR Heparin Sodium (Porcine) 25, 500 mls @ 14 mls/hr 07/13/19 08:45 07/13/19 08: 48 000 unit/ Sodium Chloride IV 700 unit/hr TITR [facility] 14 mls/hr Administration Protocol 700 UNIT/HR Lisinopril 20 mg 07/10/19 10:00 07/13/19 09:44 Prinivil PO 20 mg DAILY [facility] Administration Ranolazine 500 mg 07/09/19 22:00 07/13/19 09:44 Ranexa - PO 500 mg BID [facility] Administration Impression: Provoked P.E. S/P thrombectomy and thrombolysis for submassive P.E. RV strain Plan a/c x 3-6 months Thrombophilia work up as outpatient.
[2019-07-13] MEDS: HEPARIN NA (PORCINE) 5,000 UNITS/ML 1ML VIAL IVPUSH PRN ×2 (11:04→14:42)
--- NOTE | 2019-07-13 11:18 | PN ---
Teaching Attending Note Name of Resident: Jamaal Schofield ATTENDING PHYSICIAN STATEMENT I saw and evaluated the patient. I reviewed the resident's note and discussed the case with the resident. I agree with the resident's findings and plan as documented. SUBJECTIVE: Patient seen and examined in the ICU. Awake and alert. No CP or SOB. No acute events overnight. Intake & Output 07/10/19 07/11/19 07/12/19 07/13/19 23:59 23:59 23:59 23:59 Intake Total 549 825.7 156.1 136 Output Total 500 Balance 549 825.7 156.1 -364 Weight 188 lb 189 lb 187 lb 13.341 oz Last Vital Signs Temp Pulse Resp BP Pulse Ox 98 F 65 20 125/69 95 07/13/19 10:00 07/13/19 10:00 07/13/19 10:00 07/13/19 10:00 07/13/19 10:00 Active Medications Acetaminophen (Tylenol -) 650 mg PO Q6H PRN PRN Reason: PAIN LEVEL 3-10 Last Admin: 07/13/19 04:03 Dose: 650 mg Amlodipine Besylate (Norvasc -) 5 mg PO DAILY [facility] Last Admin: 07/13/19 09:44 Dose: 5 mg Atorvastatin Calcium (Lipitor -) 40 mg PO HS [facility] Last Admin: 07/12/19 21:03 Dose: 40 mg Heparin Sodium (Porcine) (Heparin -) 1,000 unit IVPUSH PRN PRN PRN Reason: Heparin Last Admin: 07/13/19 11:04 Dose: 1,000 unit Heparin Sodium (Porcine) (Heparin -) 5,000 unit IVPUSH PRN PRN PRN Reason: Heparin Hydrochlorothiazide (Hctz -) 12.5 mg PO DAILY [facility] Last Admin: 07/13/19 09:44 Dose: 12.5 mg Heparin Sodium (Porcine) 25, (000 unit/ Sodium Chloride) 500 mls @ 14 mls/hr IV TITR [facility]; Protocol Last Admin: 07/13/19 08:48 Dose: 700 unit/hr, 14 mls/hr Lisinopril (Prinivil) 20 mg PO DAILY [facility] Last Admin: 07/13/19 09:44 Dose: 20 mg Ranolazine (Ranexa -) 500 mg PO BID [facility] Last Admin: 07/13/19 09:44 Dose: 500 mg Gen: NAD at rest Heart: RRR Lung: decreased breath sounds at the bases Abd: soft, nontender Ext: no edema Laboratory Results - last 24 hr 07/13/19 07/13/19 07/13/19 06:15 06:15 06:15 WBC 5.3 RBC 3.46 L Hgb 10.5 L Hct 30.9 L MCV 89.3 MCH 30.2 MCHC 33.8 RDW 13.6 Plt Count 199 D MPV 9.3 Absolute Neuts (auto) 3.2 Neutrophils % 60.6 Lymphocytes % 20.0 D Monocytes % 15.6 H D Eosinophils % 3.0 Basophils % 0.8 Nucleated RBC % 0 PTT (Actin FS) 41.7 H Sodium 138 Potassium 3.7 Chloride 102 Carbon Dioxide 30 Anion Gap 6 L BUN 15.5 Creatinine 0.9 Est GFR (CKD-EPI)AfAm 73.52 Est GFR (CKD-EPI)NonAf 63.43 Random Glucose 95 Calcium 8.6 Phosphorus 4.2 Magnesium 1.8 Total Bilirubin 0.6 AST 21 ALT 51 Alkaline Phosphatase 86 Total Protein 6.2 L Albumin 3.3 L Problem List - Problems (1) Pulmonary embolism Code(s): I26.99 - OTHER PULMONARY EMBOLISM WITHOUT ACUTE COR PULMONALE Qualifiers: Pulmonary embolism type: unspecified Chronicity: unspecified Acute cor pulmonale presence: unspecified Qualified Code(s): I26.99 - Other pulmonary embolism without acute cor pulmonale A/P Submassive Pulmonary Emboli: possible Provoked HTN Hyperlipidemia - continue anticoagulation - O2 to keep Spo2 >90% - Cardiac Telemetry monitoring Dr Mitchell
[2019-07-13] MEDS: ATORVASTATIN CA 40 MG TABLET (FP) PO SCH (21:10)
--- NOTE | 2019-07-13 21:52 | PN ---
Progress Note, Physician - Current Medication List Current Medications: Active Medications Acetaminophen (Tylenol -) 650 mg PO Q6H PRN PRN Reason: PAIN LEVEL 3-10 Last Admin: 07/13/19 04:03 Dose: 650 mg Amlodipine Besylate (Norvasc -) 5 mg PO DAILY [facility] Last Admin: 07/13/19 09:44 Dose: 5 mg Atorvastatin Calcium (Lipitor -) 40 mg PO HS [facility] Last Admin: 07/13/19 21:10 Dose: 40 mg Heparin Sodium (Porcine) (Heparin -) 1,000 unit IVPUSH PRN PRN PRN Reason: Heparin Last Admin: 07/13/19 14:42 Dose: 1,000 unit Heparin Sodium (Porcine) (Heparin -) 5,000 unit IVPUSH PRN PRN PRN Reason: Heparin Hydrochlorothiazide (Hctz -) 12.5 mg PO DAILY [facility] Last Admin: 07/13/19 09:44 Dose: 12.5 mg Heparin Sodium (Porcine) 25, (000 unit/ Sodium Chloride) 500 mls @ 14 mls/hr IV TITR [facility]; Protocol Last Titration: 07/13/19 14:42 Dose: 900 unit/hr, 18 mls/hr Lisinopril (Prinivil) 20 mg PO DAILY [facility] Last Admin: 07/13/19 09:44 Dose: 20 mg Ranolazine (Ranexa -) 500 mg PO BID [facility] Last Admin: 07/13/19 21:10 Dose: 500 mg - Objective Vital Signs: Vital Signs Temperature 97.4 F L 07/13/19 14:00 Pulse Rate 57 L 07/13/19 18:00 Respiratory Rate 18 07/13/19 18:00 Blood Pressure 122/63 07/13/19 18:00 O2 Sat by Pulse Oximetry (%) 95 07/13/19 10:00 Labs: CBC, BMP 07/13/19 06:15 07/13/19 06:15 INR, PTT INR 1.27 (0.83-1.09) H 07/10/19 00:00 Problem List - Problems (1) Pulmonary embolism Code(s): I26.99 - OTHER PULMONARY EMBOLISM WITHOUT ACUTE COR PULMONALE Qualifiers: Pulmonary embolism type: unspecified Chronicity: unspecified Acute cor pulmonale presence: unspecified Qualified Code(s): I26.99 - Other pulmonary embolism without acute cor pulmonale (2) HTN (hypertension) Code(s): I10 - ESSENTIAL (PRIMARY) HYPERTENSION (3) HLD (hyperlipidemia) Code(s): E78.5 - HYPERLIPIDEMIA, UNSPECIFIED (4) Respiratory failure Code(s): J96.90 - RESPIRATORY FAILURE, UNSP, UNSP W HYPOXIA OR HYPERCAPNIA
[2019-07-14 07:14] LABS: BASO % 0.6 % (0-2.0); EOS % 2.6 % (0-4.5); HEMATOCRIT 35.7 % (32.4-45.2); HEMOGLOBIN 11.9 GM/dL (10.7-15.3); LYMPH % 22.4 % (8-40); MCH 29.7 pg (25.7-33.7); MCHC 33.3 g/dl (32.0-36.0); MEAN PLT VOLUME 9.7 fl (7.5-11.1); MONO % 10.1 % (3.8-10.2); NEUT % 64.3 % (42.8-82.8); PLATELET COUNT 254 K/MM3 (134-434); RBC 4.01 M/mm3 (3.60-5.2); RDW 13.6 % (11.6-15.6); WHITE BLOOD COUNT 8.9 K/mm3 (4.0-10.0)
[2019-07-14 08:42] LABS: ALBUMIN 3.8 g/dl (3.4-5.0); BILIRUBIN,TOTAL 0.3 mg/dL (0.2-1); BLOOD UREA NITROGEN 18.6 mg/dL (7-18); PHOSPHOROUS 4.1 mg/dL (2.5-4.9); POTASSIUM 3.9 mmol/L (3.5-5.1); TOT PROT 7.1 g/dl (6.4-8.2)
[2019-07-14] MEDS: RANOLAZINE E.R. 500 MG TABLET (FP) PO SCH ×2 (09:29→21:38)
[2019-07-14] MEDS: HEPARIN - 25,000 UNIT in SODIUM CHLORIDE 495 ML IV SCH (09:29)
[2019-07-14] MEDS: HYDROCHLOROTHIAZIDE 12.5 MG CAPSULE (FP) PO SCH (09:29)
[2019-07-14] MEDS: amLODIPine BESYLATE 5 MG TABLET (FP) PO SCH (09:29)
[2019-07-14] MEDS: LISINOPRIL 20 MG TABLET (FP) PO SCH (09:29)
[2019-07-14] MEDS: APIXABAN 5 MG TABLET PO SCH ×2 (11:02→21:38)
--- NOTE | 2019-07-14 11:34 | PN ---
Teaching Attending Note Name of Resident: Terence Tobar ATTENDING PHYSICIAN STATEMENT I saw and evaluated the patient. I reviewed the resident's note and discussed the case with the resident. I agree with the resident's findings and plan as documented. SUBJECTIVE: Pt seen and examined in the ICU. Denies shortness of breath or chest pain. Saturating low-mid 90s off oxygen. OBJECTIVE: Vital Signs Period Temp Pulse Resp BP Sys/Reese Pulse Ox Last 24 Hr 97.4 F-99.0 F 52-66 17-23 110-135/61-94 94-95 Intake & Output 07/11/19 07/12/19 07/13/19 07/14/19 23:59 23:59 23:59 23:59 Intake Total 825.7 156.1 676 122 Output Total 1300 Balance 825.7 156.1 -624 122 Weight 85.729 kg 85.2 kg 85.3 kg Gen: NAD at rest Heart: RRR Lung: decreased breath sounds at the bases Abd: soft, nontender Ext: no edema CBC, BMP 07/14/19 05:50 07/14/19 05:50 Active Medications Acetaminophen (Tylenol -) 650 mg PO Q6H PRN PRN Reason: PAIN LEVEL 3-10 Last Admin: 07/13/19 04:03 Dose: 650 mg Amlodipine Besylate (Norvasc -) 5 mg PO DAILY [facility] Last Admin: 07/14/19 09:29 Dose: 5 mg Apixaban (Eliquis -) 10 mg PO BID [facility] Stop: 07/21/19 11:00 Last Admin: 07/14/19 11:02 Dose: 10 mg Atorvastatin Calcium (Lipitor -) 40 mg PO [facility] Last Admin: 07/13/19 21:10 Dose: 40 mg Hydrochlorothiazide (Hctz -) 12.5 mg PO DAILY [facility] Last Admin: 07/14/19 09:29 Dose: 12.5 mg Lisinopril (Prinivil) 20 mg PO DAILY [facility] Last Admin: 07/14/19 09:29 Dose: 20 mg Ranolazine (Ranexa -) 500 mg PO BID [facility] Last Admin: 07/14/19 09:29 Dose: 500 mg ASSESSMENT AND PLAN: Submassive Pulmonary Emboli HTN Hyperlipidemia - continue anticoagulation, can start eliquis 10mg BID x 7 days then 5mg BID - O2 to keep Spo2 >90% - PT eval - can monitor on floor or d/c home Problem List - Problems (1) Pulmonary embolism Code(s): I26.99 - OTHER PULMONARY EMBOLISM WITHOUT ACUTE COR PULMONALE Qualifiers: Pulmonary embolism type: unspecified Chronicity: unspecified Acute cor pulmonale presence: unspecified Qualified Code(s): I26.99 - Other pulmonary embolism without acute cor pulmonale
--- NOTE | 2019-07-14 12:07 | PN ---
Physical Exam: SUBJECTIVE: Patient seen and examined in the morning. No acute events overnight. No complaints of chest pain, shortness of breath, abdominal pain, nausea, vomiting, diarrhea. OBJECTIVE: Vital Signs Period Temp Pulse Resp BP Sys/Reese Pulse Ox Last 24 Hr 97.4 F-99.0 F 52-66 17-23 110-135/61-94 94-95 GENERAL: Awake, alert, and fully oriented, in no acute distress. HEAD: Normal with no signs of trauma. EYES: Pupils equal, round and reactive to light, extraocular movements intact EARS, NOSE, THROAT: Ears normal, nares patent, oropharynx clear without exudates. Moist mucous membranes. LUNGS: Breath sounds equal, clear to auscultation bilaterally. HEART: Regular rate and rhythm, normal S1 and S2 without murmur, rub or gallop. ABDOMEN: Soft, nontender, not distended, normoactive bowel sounds. MUSCULOSKELETAL: Normal range of motion at all joints. No bony deformities or tenderness. No CVA tenderness. EXTREMITIES: 2+ pulses, warm, well-perfused. No calf tenderness. +1 peripheral edema PSYCHIATRIC: Cooperative. Good eye contact. Appropriate mood and affect. SKIN: Warm, dry, normal turgor, no rashes or lesions noted. Laboratory Results - last 24 hr 07/13/19 07/13/19 07/14/19 13:58 20:30 05:50 WBC 8.9 RBC 4.01 Hgb 11.9 Hct 35.7 D MCV 89.0 MCH 29.7 MCHC 33.3 RDW 13.6 Plt Count 254 D MPV 9.7 Absolute Neuts (auto) 5.7 Neutrophils % 64.3 Lymphocytes % 22.4 Monocytes % 10.1 Eosinophils % 2.6 Basophils % 0.6 Nucleated RBC % 0 PTT (Actin FS) 40.5 H 106.6 H Sodium Potassium Chloride Carbon Dioxide Anion Gap BUN Creatinine Est GFR (CKD-EPI)AfAm Est GFR (CKD-EPI)NonAf Random Glucose Calcium Phosphorus Magnesium Total Bilirubin AST ALT Alkaline Phosphatase Total Protein Albumin 07/14/19 07/14/19 05:50 09:46 WBC RBC Hgb Hct MCV MCH MCHC RDW Plt Count MPV Absolute Neuts (auto) Neutrophils % Lymphocytes % Monocytes % Eosinophils % Basophils % Nucleated RBC % PTT (Actin FS) 69.4 H Sodium 136 Potassium 3.9 Chloride 101 Carbon Dioxide 28 Anion Gap 7 L BUN 18.6 H Creatinine 1.0 Est GFR (CKD-EPI)AfAm 64.73 Est GFR (CKD-EPI)NonAf 55.85 Random Glucose 97 Calcium 9.0 Phosphorus 4.1 Magnesium 2.0 Total Bilirubin 0.3 AST 26 ALT 49 Alkaline Phosphatase 95 Total Protein 7.1 Albumin 3.8 Active Medications Generic Name Dose Route Start Last Admin Trade Name Freq PRN Reason Stop Dose Admin Acetaminophen 650 mg 07/10/19 03:20 07/13/19 04:03 Tylenol - PO 650 mg Q6H PRN Administration PAIN LEVEL 3-10 Amlodipine Besylate 5 mg 07/10/19 10:00 07/14/19 09:29 Norvasc - PO 5 mg DAILY [facility] Administration Apixaban 10 mg 07/14/19 11:00 07/14/19 11:02 Eliquis - PO 07/21/19 11:00 10 mg BID [facility] Administration Atorvastatin Calcium 40 mg 07/09/19 22:00 07/13/19 21:10 Lipitor - PO 40 mg HS [facility] Administration Hydrochlorothiazide 12.5 mg 07/10/19 10:00 07/14/19 09:29 Hctz - PO 12.5 mg DAILY [facility] Administration Lisinopril 20 mg 07/10/19 10:00 07/14/19 09:29 Prinivil PO 20 mg DAILY [facility] Administration Ranolazine 500 mg 07/09/19 22:00 07/14/19 09:29 Ranexa - PO 500 mg BID [facility] Administration ASSESSMENT/PLAN: 74F PMH of HTN, HLD, and OA who presents with submassive PE. She is s/p TPA and thrombectomy. Neuro: -AAOx3 -No acute issues, continue to monitor. Cardiovascular -Hx of HTN and HLD -Continue home medications -Echo shows normal LV size with hyperdynamic LV systolic function, right ventricular systolic function moderately reduced, severe pulmonary HTN. -Underwent thrombolysis and thrombectomy for submassive PE -Started on Eliquis 10 mg BID for 7 days -Eliquis 5mg BID afterwards Pulmonary -Pre and post by RT showed -DOes not require oxygen at home GI -No acute issues, will continue to monitor Renal -No acute issues, will continue to monitor ID -WNL WBC, no episodes of fever -Will continue to monitor Heme/Onc -Submassive PE s/p thrombectomy and thrombolysis -S/p thrombectomy and thrombolysis with heparin and TPA -Will require thrombophilia workup as outpatient -Eliquis 10 mg BID x7 days, then transition to Eliquis 5mg BID F: Oral hydration E: Monitor CMP N: Regular sodium/fat controlled diet DVT: Eliquis 10 mg BID Dispo: Transfer to med/surg. Visit type - Emergency Visit Emergency Visit: Yes ED Registration Date: 07/09/19 Care time: The patient presented to the Emergency Department on the above date and was hospitalized for further evaluation of their emergent condition. - New Patient This patient is new to me today: No - Critical Care Critical Care patient: Yes Total Critical Care Time (in minutes): 45 Critical Care Statement: The care of this patient involved high complexity decision making to prevent further life threatening deterioration of the patient's condition and/or to evaluate & treat vital organ system(s) failure or risk of failure. ATTENDING PHYSICIAN STATEMENT I saw and evaluated the patient. I reviewed the resident's note and discussed the case with the resident. I agree with the resident's findings and plan as documented. SUBJECTIVE: OBJECTIVE: ASSESSMENT AND PLAN:
[2019-07-14] MEDS: ATORVASTATIN CA 40 MG TABLET (FP) PO SCH (21:38)
--- NOTE | 2019-07-14 21:40 | PN ---
Progress Note, Physician - Current Medication List Current Medications: Active Medications Acetaminophen (Tylenol -) 650 mg PO Q6H PRN PRN Reason: PAIN LEVEL 3-10 Last Admin: 07/13/19 04:03 Dose: 650 mg Amlodipine Besylate (Norvasc -) 5 mg PO DAILY [facility] Last Admin: 07/14/19 09:29 Dose: 5 mg Apixaban (Eliquis -) 10 mg PO BID [facility] Stop: 07/21/19 11:00 Last Admin: 07/14/19 21:38 Dose: 10 mg Atorvastatin Calcium (Lipitor -) 40 mg PO HS [facility] Last Admin: 07/14/19 21:38 Dose: 40 mg Hydrochlorothiazide (Hctz -) 12.5 mg PO DAILY [facility] Last Admin: 07/14/19 09:29 Dose: 12.5 mg Lisinopril (Prinivil) 20 mg PO DAILY [facility] Last Admin: 07/14/19 09:29 Dose: 20 mg Ranolazine (Ranexa -) 500 mg PO BID [facility] Last Admin: 07/14/19 21:38 Dose: 500 mg - Objective Vital Signs: Vital Signs Temperature 98 F 07/14/19 20:00 Pulse Rate 63 07/14/19 20:00 Respiratory Rate 18 07/14/19 20:11 Blood Pressure 131/55 L 07/14/19 20:00 O2 Sat by Pulse Oximetry (%) 95 07/14/19 20:11 Labs: CBC, BMP 07/14/19 05:50 07/14/19 05:50 INR, PTT INR 1.27 (0.83-1.09) H 07/10/19 00:00 Problem List - Problems (1) Pulmonary embolism Code(s): I26.99 - OTHER PULMONARY EMBOLISM WITHOUT ACUTE COR PULMONALE Qualifiers: Pulmonary embolism type: unspecified Chronicity: unspecified Acute cor pulmonale presence: unspecified Qualified Code(s): I26.99 - Other pulmonary embolism without acute cor pulmonale (2) HTN (hypertension) Code(s): I10 - ESSENTIAL (PRIMARY) HYPERTENSION (3) HLD (hyperlipidemia) Code(s): E78.5 - HYPERLIPIDEMIA, UNSPECIFIED (4) Respiratory failure Code(s): J96.90 - RESPIRATORY FAILURE, UNSP, UNSP W HYPOXIA OR HYPERCAPNIA
[2019-07-14] MEDS ORDERED: MORPHINE SULFATE 2 MG/ML VIAL ONE (23:35)
[2019-07-14] MEDS: MORPHINE SULFATE 2 MG/ML VIAL IVPUSH ONE ×2 (23:38→23:42)
[2019-07-15] MEDS: ACETAMINOPHEN 325 MG TABLET (FP) PO PRN (00:47)
[2019-07-15 07:22] LABS: BASO % 0.6 % (0-2.0); EOS % 4.4 % (0-4.5); HEMATOCRIT 31.5 % (32.4-45.2); HEMOGLOBIN 10.5 GM/dL (10.7-15.3); LYMPH % 22.1 % (8-40); MCH 29.7 pg (25.7-33.7); MCHC 33.5 g/dl (32.0-36.0); MEAN CELL VOLUME 88.7 fl (80-96); MEAN PLT VOLUME 9.3 fl (7.5-11.1); MONO % 10.4 % (3.8-10.2); NEUT % 62.5 % (42.8-82.8); PLATELET COUNT 226 K/MM3 (134-434); RBC 3.55 M/mm3 (3.60-5.2); RDW 13.3 % (11.6-15.6); WHITE BLOOD COUNT 6.3 K/mm3 (4.0-10.0)
[2019-07-15 07:56] LABS: ALBUMIN 3.4 g/dl (3.4-5.0); BLOOD UREA NITROGEN 20.8 mg/dL (7-18); CALCIUM 8.6 mg/dL (8.5-10.1); POTASSIUM 3.8 mmol/L (3.5-5.1); TOT PROT 6.4 g/dl (6.4-8.2)
[2019-07-15 08:27] LABS: BILIRUBIN,TOTAL 0.3 mg/dL (0.2-1)
[2019-07-15] MEDS: amLODIPine BESYLATE 5 MG TABLET (FP) PO SCH (09:12)
[2019-07-15] MEDS: APIXABAN 5 MG TABLET PO SCH ×2 (09:13→22:04)
[2019-07-15] MEDS: LISINOPRIL 20 MG TABLET (FP) PO SCH (09:13)
[2019-07-15] MEDS: HYDROCHLOROTHIAZIDE 12.5 MG CAPSULE (FP) PO SCH (09:13)
[2019-07-15] MEDS: RANOLAZINE E.R. 500 MG TABLET (FP) PO SCH ×2 (09:13→22:05)
[2019-07-15] MEDS ORDERED: POTASSIUM CHLORIDE TABS 20 MEQ TABLET.ER (FP) PO ONE (09:15)
--- NOTE | 2019-07-15 10:42 | PN ---
Teaching Attending Note Name of Resident: Uma Stephen ATTENDING PHYSICIAN STATEMENT I saw and evaluated the patient. I reviewed the resident's note and discussed the case with the resident. I agree with the resident's findings and plan as documented. SUBJECTIVE: Pt seen and examined in the ICU. Episode of arm/chest pain overnight now resolved. No shortness of breath. OBJECTIVE: Vital Signs Period Temp Pulse Resp BP Sys/Reese Pulse Ox Last 24 Hr 98 F-98.3 F 52-64 16-19 115-145/55-85 95-96 Intake & Output 07/12/19 07/13/19 07/14/19 07/15/19 23:59 23:59 23:59 23:59 Intake Total 156.1 676 912 250 Output Total 1300 Balance 156.1 -624 912 250 Weight 85.729 kg 85.2 kg 85.3 kg 85.275 kg Gen: NAD at rest Heart: RRR Lung: decreased breath sounds at the bases Abd: soft, nontender Ext: no edema CBC, BMP 07/15/19 05:45 07/15/19 05:45 Active Medications Acetaminophen (Tylenol -) 650 mg PO Q6H PRN PRN Reason: PAIN LEVEL 3-10 Last Admin: 07/15/19 00:47 Dose: 650 mg Amlodipine Besylate (Norvasc -) 5 mg PO DAILY [facility] Last Admin: 07/15/19 09:12 Dose: 5 mg Apixaban (Eliquis -) 10 mg PO BID [facility] Stop: 07/21/19 11:00 Last Admin: 07/15/19 09:13 Dose: 10 mg Atorvastatin Calcium (Lipitor -) 40 mg PO HS [facility] Last Admin: 07/14/19 21:38 Dose: 40 mg Hydrochlorothiazide (Hctz -) 12.5 mg PO DAILY [facility] Last Admin: 07/15/19 09:13 Dose: 12.5 mg Lisinopril (Prinivil) 20 mg PO DAILY [facility] Last Admin: 07/15/19 09:13 Dose: 20 mg Ranolazine (Ranexa -) 500 mg PO BID [facility] Last Admin: 07/15/19 09:13 Dose: 500 mg ASSESSMENT AND PLAN: Submassive Pulmonary Emboli s/p Catheter directed thrombectomy/thrombolysis HTN Hyperlipidemia - eliquis 10mg BID x 7 days then 5mg BID - O2 to keep Spo2 >90% - PT eval - can monitor on floor or d/c home Problem List - Problems (1) Pulmonary embolism Code(s): I26.99 - OTHER PULMONARY EMBOLISM WITHOUT ACUTE COR PULMONALE Qualifiers: Pulmonary embolism type: unspecified Chronicity: unspecified Acute cor pulmonale presence: unspecified Qualified Code(s): I26.99 - Other pulmonary embolism without acute cor pulmonale
--- NOTE | 2019-07-15 13:24 | PN ---
Physical Exam: SUBJECTIVE: Patient seen and examined. Reported episode of chest pain overnight which subsided w/ tylenol, no further episodes. Ambulating well w/ cane. OBJECTIVE: Vital Signs Period Temp Pulse Resp BP Sys/Reese Pulse Ox Last 24 Hr 98 F-98.3 F 52-64 16-19 114-145/55-75 95-96 GENERAL: AOx3 NAD HEENT: NCAT PERRLA LUNGS: Breath sounds equal, clear to auscultation bilaterally. HEART: Regular rate and rhythm, normal S1 and S2 without murmur, rub or gallop. ABDOMEN: Soft, nontender, not distended, normoactive bowel sounds. No guarding. EXTREMITIES: 2+ pulses, warm, well-perfused. No calf tenderness. No LE edema. SKIN: Warm, dry Laboratory Results - last 24 hr 07/14/19 07/15/19 07/15/19 23:30 05:45 05:45 WBC 6.3 RBC 3.55 L Hgb 10.5 L Hct 31.5 L MCV 88.7 MCH 29.7 MCHC 33.5 RDW 13.3 Plt Count 226 MPV 9.3 Absolute Neuts (auto) 4.0 Neutrophils % 62.5 Lymphocytes % 22.1 Monocytes % 10.4 H Eosinophils % 4.4 Basophils % 0.6 Nucleated RBC % 0 PTT (Actin FS) 42.0 H Sodium Potassium Chloride Carbon Dioxide Anion Gap BUN Creatinine Est GFR (CKD-EPI)AfAm Est GFR (CKD-EPI)NonAf Random Glucose Calcium Phosphorus Magnesium Total Bilirubin AST ALT Alkaline Phosphatase Troponin I 0.07 H Total Protein Albumin 07/15/19 07/15/19 05:45 05:45 WBC RBC Hgb Hct MCV MCH MCHC RDW Plt Count MPV Absolute Neuts (auto) Neutrophils % Lymphocytes % Monocytes % Eosinophils % Basophils % Nucleated RBC % PTT (Actin FS) Sodium 137 Potassium 3.8 Chloride 102 Carbon Dioxide 28 Anion Gap 6 L BUN 20.8 H Creatinine 1.0 Est GFR (CKD-EPI)AfAm 64.73 Est GFR (CKD-EPI)NonAf 55.85 Random Glucose 95 Calcium 8.6 Phosphorus 4.0 Magnesium 2.0 Total Bilirubin 0.3 AST 16 ALT 41 Alkaline Phosphatase 79 Troponin I 0.05 Total Protein 6.4 Albumin 3.4 Active Medications Generic Name Dose Route Start Last Admin Trade Name Freq PRN Reason Stop Dose Admin Acetaminophen 650 mg 07/10/19 03:20 07/15/19 00:47 Tylenol - PO 650 mg Q6H PRN Administration PAIN LEVEL 3-10 Amlodipine Besylate 5 mg 07/10/19 10:00 07/15/19 09:12 Norvasc - PO 5 mg DAILY [facility] Administration Apixaban 10 mg 07/14/19 11:00 07/15/19 09:13 Eliquis - PO 07/21/19 11:00 10 mg BID [facility] Administration Atorvastatin Calcium 40 mg 07/09/19 22:00 07/14/19 21:38 Lipitor - PO 40 mg HS [facility] Administration Hydrochlorothiazide 12.5 mg 07/10/19 10:00 07/15/19 09:13 Hctz - PO 12.5 mg DAILY [facility] Administration Lisinopril 20 mg 07/10/19 10:00 07/15/19 09:13 Prinivil PO 20 mg DAILY [facility] Administration Ranolazine 500 mg 07/09/19 22:00 07/15/19 09:13 Ranexa - PO 500 mg BID [facility] Administration ASSESSMENT/PLAN: 74 y.o. M PMH HTN, HLD, OA found to have b/l submassive pulmonary emboli. #Neuro -AOx3 -no further episodes of headaches #CV -hx HTN: on lisinopril 20mg po, norvasc 5mg po, hctz 12.5 mg PO -echo shows normal LV size with hyperdynamic LV systolic function, right ventricular systolic function moderately reduced, severe pulmonary HTN. #Pulm -Found to have b/l submassive PE on CTA chest -s/p thrombectomy & tpa thrombolysis 07/11 -Saturating well continue to monitor sao2 -continue anticoagulation #Heme/onc -Will require thrombophilia workup as outpatient -Anticoagulation for min 3 months with re-evaluation as outpatient #FENLTD: -No IVF -trend lytes replete prn -tolerating PO diet #PPX DVT: s/p tpa, heparin drip-- now eliquis 10mg BID x 7 days (today day #2); 5mg thereafter for min 3 months #Dispo med/surg Visit type - Emergency Visit Emergency Visit: No - New Patient This patient is new to me today: No - Critical Care Critical Care patient: Yes Total Critical Care Time (in minutes): 45 Critical Care Statement: The care of this patient involved high complexity decision making to prevent further life threatening deterioration of the patient's condition and/or to evaluate & treat vital organ system(s) failure or risk of failure. ATTENDING PHYSICIAN STATEMENT I saw and evaluated the patient. I reviewed the resident's note and discussed the case with the resident. I agree with the resident's findings and plan as documented. SUBJECTIVE: OBJECTIVE: ASSESSMENT AND PLAN:
--- NOTE | 2019-07-15 14:04 | EKG ---
Test Reason : Blood Pressure : / mmHG Vent. Rate : 059 BPM Atrial Rate : 059 BPM P-R Int : 206 ms QRS Dur : 104 ms QT Int : 456 ms P-R-T Axes : 038 054 059 degrees QTc Int : 451 ms SINUS BRADYCARDIA WITH 1ST DEGREE A-V BLOCK LEFT VENTRICULAR HYPERTROPHY WITH REPOLARIZATION ABNORMALITY ABNORMAL ECG Confirmed by MD ZENY, SARAH ([id number]) on 07/15/2019 2:03:53 PM Referred By: Confirmed By:SARAH MOURA MD
[2019-07-15] MEDS: ATORVASTATIN CA 40 MG TABLET (FP) PO SCH (22:04)
--- NOTE | 2019-07-15 23:57 | PN ---
Progress Note, Physician History of Present Illness: Pt is feeling better - Current Medication List Current Medications: Active Medications Acetaminophen (Tylenol -) 650 mg PO Q6H PRN PRN Reason: PAIN LEVEL 3-10 Last Admin: 07/15/19 00:47 Dose: 650 mg Amlodipine Besylate (Norvasc -) 5 mg PO DAILY [facility] Last Admin: 07/15/19 09:12 Dose: 5 mg Apixaban (Eliquis -) 10 mg PO BID [facility] Stop: 07/21/19 11:00 Last Admin: 07/15/19 22:04 Dose: 10 mg Atorvastatin Calcium (Lipitor -) 40 mg PO HS [facility] Last Admin: 07/15/19 22:04 Dose: 40 mg Hydrochlorothiazide (Hctz -) 12.5 mg PO DAILY [facility] Last Admin: 07/15/19 09:13 Dose: 12.5 mg Lisinopril (Prinivil) 20 mg PO DAILY [facility] Last Admin: 07/15/19 09:13 Dose: 20 mg Ranolazine (Ranexa -) 500 mg PO BID [facility] Last Admin: 07/15/19 22:05 Dose: 500 mg - Objective Vital Signs: Vital Signs Temperature 97.9 F 07/15/19 19:15 Pulse Rate 56 L 07/15/19 19:15 Respiratory Rate 18 07/15/19 19:15 Blood Pressure 121/58 L 07/15/19 19:15 O2 Sat by Pulse Oximetry (%) 94 L 07/15/19 19:15 Neck: Yes: WNL, Supple Cardiovascular: Yes: WNL, Regular Rate and Rhythm, Bradycardia Respiratory: Yes: WNL, Regular, CTA Bilaterally Gastrointestinal: Yes: WNL, Normal Bowel Sounds, Soft Labs: CBC, BMP 07/15/19 05:45 07/15/19 05:45 INR, PTT INR 1.27 (0.83-1.09) H 07/10/19 00:00 Problem List - Problems (1) Pulmonary embolism Assessment/Plan: S/P thrombectomy w/ TPA thrombolysis Cont toyin DOMINGO planning for am Code(s): I26.99 - OTHER PULMONARY EMBOLISM WITHOUT ACUTE COR PULMONALE Qualifiers: Pulmonary embolism type: unspecified Chronicity: unspecified Acute cor pulmonale presence: unspecified Qualified Code(s): I26.99 - Other pulmonary embolism without acute cor pulmonale (2) HTN (hypertension) Assessment/Plan: BP stable Cont norvasc/hctz/lisinopril Code(s): I10 - ESSENTIAL (PRIMARY) HYPERTENSION (3) HLD (hyperlipidemia) Assessment/Plan: Cont lipitor Code(s): E78.5 - HYPERLIPIDEMIA, UNSPECIFIED (4) Respiratory failure Assessment/Plan: Resolved Code(s): J96.90 - RESPIRATORY FAILURE, UNSP, UNSP W HYPOXIA OR HYPERCAPNIA
[2019-07-16] MEDS ORDERED: HEPARIN NA (PORCINE) 5,000 UNITS/ML 1ML VIAL IVPUSH PRN ×4 (00:27)
[2019-07-16] MEDS ORDERED: ACETAMINOPHEN 325 MG TABLET (FP) PO PRN (00:27)
[2019-07-16] MEDS ORDERED: amLODIPine BESYLATE 5 MG TABLET (FP) PO SCH (10:00)
[2019-07-16] MEDS ORDERED: APIXABAN 5 MG TABLET PO SCH (10:00)
[2019-07-16] MEDS ORDERED: HYDROCHLOROTHIAZIDE 12.5 MG CAPSULE (FP) PO SCH (10:00)
[2019-07-16] MEDS ORDERED: RANOLAZINE E.R. 500 MG TABLET (FP) PO SCH (10:00)
[2019-07-16] MEDS ORDERED: LISINOPRIL 20 MG TABLET (FP) PO SCH (10:00)
--- NOTE | 2019-07-16 11:05 | PN ---
Progress Note (short form) - Note Progress Note: OOB to chair. NAD on RA. No CP or SOB. No acute events overnight. Intake & Output 07/13/19 07/14/19 07/15/19 07/16/19 23:59 23:59 23:59 23:59 Intake Total 534 902 5560 220 Output Total 1300 Balance -877 139 8668 220 Weight 187 lb 13.341 oz 188 lb 0.869 oz 188 lb 180 lb 3.2 oz Last Vital Signs Temp Pulse Resp BP Pulse Ox 98.5 F 53 L 18 155/74 94 L 07/16/19 06:00 07/16/19 06:00 07/16/19 06:00 07/16/19 06:00 07/15/19 21:00 Active Medications Acetaminophen (Tylenol -) 650 mg PO Q6H PRN PRN Reason: PAIN LEVEL 3-10 Last Admin: 07/16/19 10:15 Dose: 650 mg Amlodipine Besylate (Norvasc -) 5 mg PO DAILY [facility] Last Admin: 07/16/19 09:58 Dose: 5 mg Apixaban (Eliquis -) 10 mg PO BID [facility] Stop: 07/21/19 11:00 Last Admin: 07/16/19 09:57 Dose: 10 mg Atorvastatin Calcium (Lipitor -) 40 mg PO [facility] Hydrochlorothiazide (Hctz -) 12.5 mg PO DAILY [facility] Last Admin: 07/16/19 09:59 Dose: 12.5 mg Lisinopril (Prinivil) 20 mg PO DAILY [facility] Last Admin: 07/16/19 09:57 Dose: 20 mg Ranolazine (Ranexa -) 500 mg PO BID [facility] Last Admin: 07/16/19 09:58 Dose: 500 mg Gen: NAD at rest Heart: RRR Lung: decreased breath sounds at the bases Abd: soft, nontender Ext: no edema Problem List - Problems (1) Pulmonary embolism Code(s): I26.99 - OTHER PULMONARY EMBOLISM WITHOUT ACUTE COR PULMONALE Qualifiers: Pulmonary embolism type: unspecified Chronicity: unspecified Acute cor pulmonale presence: unspecified Qualified Code(s): I26.99 - Other pulmonary embolism without acute cor pulmonale ASSESSMENT AND PLAN: Submassive Pulmonary Emboli s/p Catheter directed thrombectomy/thrombolysis HTN Hyperlipidemia - eliquis 10mg BID x 7 days then 5mg BID - DC Home with outpatient Heme follow up Dr Mitchell
[2019-07-16 11:23] LABS: HEMOGLOBIN 11.5 GM/dL (10.7-15.3); MCH 29.5 pg (25.7-33.7); MCHC 32.9 g/dl (32.0-36.0); MEAN CELL VOLUME 89.7 fl (80-96); MEAN PLT VOLUME 9.4 fl (7.5-11.1); PLATELET COUNT 277 K/MM3 (134-434); RDW 13.5 % (11.6-15.6); WHITE BLOOD COUNT 6.6 K/mm3 (4.0-10.0)
[2019-07-16 11:49] LABS: ALBUMIN 3.8 g/dl (3.4-5.0); BILIRUBIN,TOTAL 0.7 mg/dL (0.2-1); BLOOD UREA NITROGEN 18.2 mg/dL (7-18); CALCIUM 9.1 mg/dL (8.5-10.1); CREATININE 0.9 mg/dL (0.55-1.3); PHOSPHOROUS 3.2 mg/dL (2.5-4.9); TOT PROT 7.3 g/dl (6.4-8.2)
[2019-07-16 12:50] VITALS: BP 131/66; PULSE 87; TEMP 98.2
[2019-07-16 13:05] VITALS: BMI 29.9
[2019-07-16] MEDS ORDERED: ATORVASTATIN CA 40 MG TABLET (FP) PO SCH (22:00)
== END 2019-07-16 14:01 | disposition home or self-care (01) | DRG 163 ==
LOC: JER 12:40 → JERBED 17:03 → J8W 07-10 02:04 → JICU 07-11 17:16 → J5S 07-15 19:00
PROVIDERS: ADMIT Internal Medicine; ATTEND Internal Medicine
PROC: 02CR3ZZ Extirpation of Matter from Left Pulmonary Artery, Percutaneous Approach (ICD-10-PCS; principal; 2019-07-11)
PROC: 02CQ3ZZ Extirpation of Matter from Right Pulmonary Artery, Percutaneous Approach (ICD-10-PCS; 2019-07-11)
PROC: 3E03317 Introduction of Other Thrombolytic into Peripheral Vein, Percutaneous Approach (ICD-10-PCS; 2019-07-11)
PROC: B31TYZZ Fluoroscopy of Left Pulmonary Artery using Other Contrast (ICD-10-PCS; 2019-07-12)
PROC: B31SYZZ Fluoroscopy of Right Pulmonary Artery using Other Contrast (ICD-10-PCS; 2019-07-12)
PROC: B31UZZZ Fluoroscopy of Pulmonary Trunk (ICD-10-PCS; 2019-07-12)
DX: I26.99 Other pulmonary embolism without acute cor pulmonale (principal); J96.90 Respiratory failure, unspecified, unspecified whether with hypoxia or hypercapnia; D68.59 Other primary thrombophilia; I10 Essential (primary) hypertension; E78.5 Hyperlipidemia, unspecified; R94.31 Abnormal electrocardiogram [ECG] [EKG]
CPT/HCPCS: 36415; 37184; 37212; 70450-TC; 71045-TC-FY; 71275-TC; 74174-TC; 75746-TC-FY; 76937-TC; 80053; 82550; 83735; 84100; 84484; 85025; 85027; 85610; 85730; 86850; 86900; 86901; 93005; 93010; 93306-TC; 93970-TC; 94761; 97116-GP; 97161-GP; 99285-25; C1769; C1887; C1894; C9999; J1644; J2997; Q9967

== ENCOUNTER 2023-04-22 04:05 | Day surgery (SDC) | payer OTHER ==
[2023-04-21 08:41] VITALS: BMI 31.6
[2023-04-22 07:07] LABS: BASO % 0.7 % (0-2.0); EOS % 1.9 % (0-4.5); HEMATOCRIT 35.2 % (32.4-45.2); HEMOGLOBIN 11.3 GM/dL (10.7-15.3); LYMPH % 24.3 % (8-40); MCH 28.6 pg (25.7-33.7); MCHC 32.1 g/dl (32.0-36.0); MEAN CELL VOLUME 89.1 fl (80-96); MEAN PLT VOLUME 9.3 fl (7.5-11.1); MONO % 9.5 % (3.8-10.2); NEUT % 63.6 % (42.8-82.8); PLATELET COUNT 215 10^3/uL (134-434); RBC 3.95 M/mm3 (3.60-5.2); RDW 15.1 % (11.6-15.6); WHITE BLOOD COUNT 6.7 K/mm3 (4.0-10.0)
[2023-04-22 07:13] LABS: INR 1.12 (0.83-1.09)
[2023-04-22 07:32] LABS: POTASSIUM 4.2 mmol/L (3.5-5.1)
[2023-04-22 07:34] LABS: CALCIUM 9.1 mg/dL (8.5-10.1)
[2023-04-22 07:35] LABS: ALBUMIN 3.9 g/dl (3.4-5.0); BLOOD UREA NITROGEN 25.7 mg/dL (7-18)
[2023-04-22 07:40] LABS: BILIRUBIN,TOTAL 0.3 mg/dL (0.2-1); TOT PROT 7.2 g/dl (6.4-8.2)
[2023-04-22 11:17] VITALS: RESP 20
[2023-04-22 11:50] VITALS: BP 126/54; PULSE 62; TEMP 97.5
== END 2023-04-22 13:19 | disposition home or self-care (01) ==
LOC: JRADIR 04:05
PROVIDERS: ATTEND Internal Medicine Hematology & Oncology
PROC: 06H03DZ Insertion of Intraluminal Device into Inferior Vena Cava, Percutaneous Approach (ICD-10-PCS; principal; 2023-04-22)
DX: I82.509 Chronic embolism and thrombosis of unspecified deep veins of unspecified lower extremity (principal)
CPT/HCPCS: 37191; L8699; 36415; 80053; 85025; 85610; C1769; C1880

== ENCOUNTER 2023-07-18 04:49 | Day surgery (SDC) | payer OTHER ==
[2023-07-13 09:37] VITALS: BMI 31.6
[2023-07-18 08:04] LABS: CALCIUM 8.8 mg/dL (8.5-10.1)
[2023-07-18 08:05] LABS: BLOOD UREA NITROGEN 17.3 mg/dL (7-18)
[2023-07-18 08:08] LABS: CREATININE 0.8 mg/dL (0.55-1.3)
[2023-07-18 08:13] LABS: BASO % 0.6 % (0-2.0); EOS % 2.7 % (0-4.5); HEMATOCRIT 36.9 % (32.4-45.2); HEMOGLOBIN 11.9 GM/dL (10.7-15.3); LYMPH % 22.3 % (8-40); MCH 28.5 pg (25.7-33.7); MCHC 32.3 g/dl (32.0-36.0); MEAN CELL VOLUME 88.4 fl (80-96); MONO % 11.1 % (3.8-10.2); NEUT % 63.3 % (42.8-82.8); PLATELET COUNT 178 10^3/uL (134-434); RBC 4.17 M/mm3 (3.60-5.2); RDW 15.2 % (11.6-15.6); WHITE BLOOD COUNT 7.1 K/mm3 (4.0-10.0)
[2023-07-18 08:25] LABS: INR 1.22 (0.83-1.09); PROTHROMBIN TIME (PATIENT) 14.1 SEC (9.7-13.0)
[2023-07-18] MEDS: SODIUM CHLORIDE 500 ML IV ONE (10:00)
[2023-07-18] MEDS ORDERED: HEPARIN NA (PORCINE) 5,000 UNITS/ML 1ML VIAL ONE (11:09)
[2023-07-18] MEDS: HEPARIN NA (PORCINE) 5,000 UNITS/ML 1ML VIAL IV ONE (11:11)
[2023-07-18] MEDS ORDERED: ACETAMINOPHEN 325 MG TABLET (FP) PO PRN ×2 (11:41→12:54)
[2023-07-18] MEDS ORDERED: ACETAMINOPHEN INJECTION 100 ML IVPB ONE (12:58)
[2023-07-18 12:59] VITALS: RESP 18
[2023-07-18] MEDS: ACETAMINOPHEN 1000 MG/100 ML BAG IVPB ONE (13:05)
[2023-07-18 14:13] VITALS: BP 132/60; PULSE 70; TEMP 97.8
== END 2023-07-18 14:22 | disposition home or self-care (01) ==
LOC: JRADIR 04:49
PROVIDERS: ATTEND Internal Medicine Hematology & Oncology
PROC: 06PY3DZ Removal of Intraluminal Device from Lower Vein, Percutaneous Approach (ICD-10-PCS; principal; 2023-07-18)
DX: Z45.89 Encounter for adjustment and management of other implanted devices (principal); I26.99 Other pulmonary embolism without acute cor pulmonale; Z53.8 Procedure and treatment not carried out for other reasons
CPT/HCPCS: 36415; 37193; 80048; 85025; 85610; J0131; J1644

== ENCOUNTER 2024-08-10 13:30 | Observation (INO) | payer OTHER ==
[2024-08-10 14:35] LABS: VENOUS BASE EXCESS 1.6 mmol/L (-2-2); VENOUS O2 SATURATION 85.8 % (70-80); VENOUS PCO2 49.6 mmHg (38-52); VENOUS PH 7.366 (7.310-7.410)
[2024-08-10 14:36] LABS: BASO % 0.6 % (0-2.0); EOS % 2.6 % (0-4.5); HEMATOCRIT 41.8 % (32.4-45.2); LYMPH % 19.7 % (8-40); MCH 29.2 pg (25.7-33.7); MCHC 33.3 g/dl (32.0-36.0); MEAN CELL VOLUME 87.7 fl (80-96); MEAN PLT VOLUME 9.3 fl (7.5-11.1); MONO % 12.4 % (3.8-10.2); NEUT % 64.7 % (42.8-82.8); PLATELET COUNT 182 10^3/uL (134-434); RBC 4.77 M/mm3 (3.60-5.2); RDW 15.4 % (11.6-15.6); WHITE BLOOD COUNT 6.2 K/mm3 (4.0-10.0)
[2024-08-10 14:42] LABS: INR 1.42 (0.83-1.09); PROTHROMBIN TIME (PATIENT) 15.6 SEC (9.7-13.0)
[2024-08-10 14:45] LABS: ACTIVATED PTT 39.1 SECONDS (25.2-36.5)
[2024-08-10 14:58] LABS: POTASSIUM 3.5 mmol/L (3.5-5.1)
[2024-08-10 15:01] LABS: ALBUMIN 3.2 g/dl (3.4-5.0); BLOOD UREA NITROGEN 14.5 mg/dL (7-18); CALCIUM 7.9 mg/dL (8.5-10.1)
[2024-08-10 15:04] LABS: CREATININE 0.6 mg/dL (0.55-1.3)
[2024-08-10 15:06] LABS: BILIRUBIN,TOTAL 0.7 mg/dL (0.2-1)
[2024-08-10] MEDS ORDERED: LISINOPRIL 5 MG TABLET ONE (17:17)
[2024-08-10] MEDS: FUROSEMIDE 40 MG/4 ML INJECTABLE VIAL IVPUSH ONE (17:17)
[2024-08-10] MEDS: LISINOPRIL 5 MG TABLET PO ONE (17:17)
[2024-08-10] MEDS ORDERED: FUROSEMIDE 40 MG/4 ML INJECTABLE VIAL ONE (17:17)
[2024-08-10] MEDS ORDERED: ACETAMINOPHEN 325 MG TABLET (FP) PO ONE (18:17)
[2024-08-10] MEDS ORDERED: DOCUSATE SODIUM 100 MG CAPSULE (FP) PO PRN (20:11)
[2024-08-10] MEDS ORDERED: ACETAMINOPHEN 325 MG TABLET (FP) PO PRN (20:11)
[2024-08-11 01:00] VITALS: BMI 31.8
[2024-08-11] MEDS: FUROSEMIDE 40 MG/4 ML INJECTABLE VIAL IVPUSH ONE (06:58)
[2024-08-11 07:41] LABS: BASO % 0.7 % (0-2.0); EOS % 3.1 % (0-4.5); HEMATOCRIT 44.5 % (32.4-45.2); HEMOGLOBIN 14.5 GM/dL (10.7-15.3); LYMPH % 25.2 % (8-40); MCHC 32.5 g/dl (32.0-36.0); MEAN CELL VOLUME 89.2 fl (80-96); MEAN PLT VOLUME 9.5 fl (7.5-11.1); MONO % 13.9 % (3.8-10.2); NEUT % 57.1 % (42.8-82.8); PLATELET COUNT 192 10^3/uL (134-434); RBC 4.99 M/mm3 (3.60-5.2); RDW 15.3 % (11.6-15.6)
[2024-08-11 08:21] LABS: BLOOD UREA NITROGEN 23.2 mg/dL (7-18)
[2024-08-11 08:24] LABS: PHOSPHOROUS 5.2 mg/dL (2.5-4.9)
[2024-08-11 08:35] LABS: CALCIUM 9.5 mg/dL (8.5-10.1)
[2024-08-11] MEDS: amLODIPine BESYLATE 5 MG TABLET (FP) PO SCH (09:41)
[2024-08-11] MEDS: APIXABAN 5 MG TABLET PO SCH (09:41)
[2024-08-11] MEDS: LISINOPRIL 20 MG TABLET PO SCH (09:41)
[2024-08-11] MEDS: ATORVASTATIN CA 40 MG TABLET (FP) PO SCH (21:07)
[2024-08-12] MEDS ORDERED: FUROSEMIDE 40 MG/4 ML INJECTABLE VIAL IVPUSH SCH (10:00)
[2024-08-13 07:35] LABS: BASO % 0.7 % (0-2.0); EOS % 2.8 % (0-4.5); HEMATOCRIT 42.3 % (32.4-45.2); LYMPH % 26.8 % (8-40); MCH 29.1 pg (25.7-33.7); MEAN CELL VOLUME 88.2 fl (80-96); MEAN PLT VOLUME 9.4 fl (7.5-11.1); MONO % 10.5 % (3.8-10.2); NEUT % 59.2 % (42.8-82.8); PLATELET COUNT 183 10^3/uL (134-434); RDW 14.7 % (11.6-15.6); WHITE BLOOD COUNT 5.5 K/mm3 (4.0-10.0)
[2024-08-13 07:48] LABS: POTASSIUM 4.1 mmol/L (3.5-5.1)
[2024-08-13 07:55] LABS: ALBUMIN 3.7 g/dl (3.4-5.0); CALCIUM 8.8 mg/dL (8.5-10.1)
[2024-08-13 07:56] LABS: BLOOD UREA NITROGEN 23.4 mg/dL (7-18)
[2024-08-13 07:58] LABS: BILIRUBIN,TOTAL 0.8 mg/dL (0.2-1); CREATININE 0.8 mg/dL (0.55-1.3)
[2024-08-13 10:06] VITALS: RESP 18
[2024-08-13] MEDS: ALBUTEROL SO4 2.5/IPRATROPIUM 0.5 INH SOL 3 ML VIAL.NEB. NEB SCH (15:47)
[2024-08-13] MEDS: BUDESONIDE/FORMETEROL FUMARATE 160/4.5 mcg INHALER IH SCH (21:37)
[2024-08-14 09:32] VITALS: BP 168/67; PULSE 58; TEMP 98.2
[2024-08-16 16:10] LABS: THYROID STIM IMMUNOGLOBULIN <0.10 IU/L (0.00-0.55)
== END 2024-08-14 13:19 | disposition home or self-care (01) ==
LOC: JER 13:30 → JERBED 18:35 → J4W 20:34
PROVIDERS: ADMIT Internal Medicine; ATTEND Internal Medicine
PROC: 3E033GC Introduction of Other Therapeutic Substance into Peripheral Vein, Percutaneous Approach (ICD-10-PCS; principal; 2024-08-10)
DX: I27.20 Pulmonary hypertension, unspecified (principal); J44.9 Chronic obstructive pulmonary disease, unspecified; E07.9 Disorder of thyroid, unspecified; Z79.01 Long term (current) use of anticoagulants; K21.9 Gastro-esophageal reflux disease without esophagitis; E78.5 Hyperlipidemia, unspecified; Z86.718 Personal history of other venous thrombosis and embolism; Z86.711 Personal history of pulmonary embolism; J98.11 Atelectasis; R06.00 Dyspnea, unspecified
CPT/HCPCS: 0241U-QW; 36415; 71045-TC-FY; 71275-TC; 80048; 80053; 82803; 83036; 83735; 83880; 84100; 84439; 84443; 84445; 84481; 84484; 85025; 85610; 85730; 93005; 93010; 93306-TC; 93970-TC; 94010; 94640; 94761; 96374; 96376; 99285-25; G0378; Q9967